=== PATIENT | female | born 1955 | race Caucasian/White ===

== ENCOUNTER 2020-02-21 11:49 | Day surgery (SDC) | payer MEDICARE ==
--- NOTE | 2020-02-14 09:59 | HP ---
DATE OF SURGERY: 02/21/2020 HISTORY OF PRESENT ILLNESS: The patient presents to the office with a bothersome right elbow mass. It has been there for a while, a few months. It puts pressure on the area when she is trying to use it. She also has a left upper arm subcutaneous mass. She reports that this is from an old dog bite. There is some bulging and scarring to the area. PAST MEDICAL HISTORY: Anxiety. Hypertension. Leaky heart valve. PAST SURGICAL HISTORY: Skin cancer removed from the scalp. ALLERGIES: NKDA. MEDICATIONS: Metoprolol. Lexapro. Hydralazine. FAMILY HISTORY: Heart disease, lung cancer, cirrhosis. SOCIAL HISTORY: Former smoker, occasional alcohol. REVIEW OF SYSTEMS: CONSTITUTIONAL: No fever or chills. CHEST: Denies shortness of breath. CVS: Denies chest pain. ABDOMEN: Denies abdominal pain, nausea, vomiting, diarrhea, constipation or rectal bleeding. INTEGUMENTARY: Reports subcutaneous mass of the left elbow and left upper arm. PHYSICAL EXAMINATION: GENERAL: No acute distress. CHEST: Nonlabored. No shortness of breath. CVS: Regular rate and rhythm. ABDOMEN: Soft, nontender to palpation. EXTREMITIES: No edema. INTEGUMENTARY: Left upper arm subcutaneous mass approximately 2.5 x 2.5 cm, right elbow subcutaneous mass 1 x 1 cm. ASSESSMENT: Subcutaneous mass of the left upper arm and right elbow. PLAN: Excision of right elbow subcutaneous mass and left upper arm subcutaneous mass with Dr. Joel Valle. As dictated by Abby Capone NP.
[~2020-02-21 11:49] MED LIST: Lactated Ringers 1,000 ML IV ONE; Sensorcaine 0.25% 10 ML ONE
[2020-02-21] MEDS ORDERED: SUBLIMAZE 100 MCG/2 ML ONE ×2 (12:56→16:51)
[2020-02-21] MEDS ORDERED: DIPRIVAN 200 MG/20 ML IV ONE (12:57)
[2020-02-21] MEDS ORDERED: Versed 2 MG/2 ML Injection ONE ×2 (12:57→14:09)
[2020-02-21] MEDS ORDERED: Xylocaine-Mpf 2% 5 Ml Vial ONE (12:58)
[2020-02-21] MEDS ORDERED: KEFZOL 1 GM ONE (13:17)
[2020-02-21] MEDS ORDERED: Proair Hfa MDI IH ONE (13:25)
[2020-02-21] MEDS ORDERED: Lactated Ringers 1,000 ML IV SCH (14:00)
[2020-02-21] MEDS ORDERED: Versed 2 MG/2 ML Injection IV ONE (14:13)
[2020-02-21] MEDS ORDERED: Sensorcaine 0.25% 10 ML ONE (16:52)
[2020-02-21] MEDS ORDERED: APRESOLINE 20 MG/ML INJ IV ONE (17:51)
[2020-02-21] MEDS ORDERED: APRESOLINE 20 MG/ML INJ ONE (17:52)
[2020-02-21 18:06] VITALS: BP 158/74; PULSE 72; O2SAT 97
--- NOTE | 2020-02-22 08:08 | OP ---
SURGERY DATE/TIME: 02/21/2020 8264 PREOPERATIVE DIAGNOSES: 1) A 4 cm lipoma left arm, symptomatic and enlarging. 2) A 2 cm lipoma right arm, symptomatic and enlarging. POSTOPERATIVE DIAGNOSES: 1) A 4 cm lipoma left arm, symptomatic and enlarging. 2) A 2 cm lipoma right arm, symptomatic and enlarging. PROCEDURE: Excision and closure x2. SURGEON: Joel Valle M.D. R D MANAGER: Dany White, [facility] Resident II. ANESTHESIA: General. COMPLICATIONS: None. CONDITION: Stable. INDICATION: A patient requiring excision of two subcutaneous masses. DESCRIPTION OF PROCEDURE: Taken to surgery. MAC/General sedation. Routine prep and drape. The largest on the left arm 4 cm transverse incision removed in its entirety. Hemostasis obtained with electrocautery. Closed with 3-0 Vicryl, 4-0 Vicryl and Steri-Strips. The smaller one on the right elbow area transverse incision of 2 cm bilobed lipoma removed in toto. Hemostasis satisfactory. Closed with 3-0 Vicryl, 4-0 Vicryl and Steri-Strips. The patient tolerated the procedure satisfactorily.
== END 2020-02-21 18:15 | disposition home or self-care (01) ==
LOC: SDC 11:49
PROVIDERS: ATTEND Surgery
DX: D17.22 Benign lipomatous neoplasm of skin and subcutaneous tissue of left arm (principal); D17.21 Benign lipomatous neoplasm of skin and subcutaneous tissue of right arm
CPT/HCPCS: 88304; J0360; J0690; J2250; J2704; J3010; A9270-GY

== ENCOUNTER 2020-07-10 06:15 | Day surgery (SDC) | payer MEDICARE ==
--- NOTE | 2020-07-04 13:13 | HP ---
DATE OF SURGERY: 07/10/2020 HISTORY OF PRESENT ILLNESS: The patient presented to the office with complaints of diarrhea and occasional abdominal pain. She has had to go multiple times a day. The pain is located in the right upper quadrant. She did have a HIDA scan done that was normal. Ejection fraction was high at 85%, this could still be biliary dyskinesia and she may need her gallbladder taken out. She is also due for a colonoscopy. It is unclear if this is her first colonoscopy. PAST MEDICAL HISTORY: Hypertension. Depression. PAST SURGICAL HISTORY: Subcutaneous mass removed from the right and left arm. ALLERGIES: NKDA. MEDICATIONS: Metoprolol, Lexapro, hydralazine. FAMILY HISTORY: Heart disease, cancer. SOCIAL HISTORY: None. REVIEW OF SYSTEMS: CONSTITUTIONAL: Denies fever or chills. CHEST: Denies shortness of breath. CVS: Denies chest pain. ABDOMEN: Reports right upper quadrant pain. Denies nausea, vomiting. Reports occasional diarrhea. Denies constipation or rectal bleeding. INTEGUMENTARY: Negative. PHYSICAL EXAMINATION: GENERAL: No acute distress. CHEST: Nonlabored. No shortness of breath. CVS: Regular rate and rhythm. ABDOMEN: Soft, tender to palpation right upper quadrant. EXTREMITIES: No edema. NEUROLOGIC: Alert. PSYCHIATRIC: Appropriate. IMPRESSION: Screening, diarrhea and abdominal pain. PLAN: Colonoscopy with stool study with Dr. Joel Valle. As dictated by Abby Capone NP.
[2020-07-10] MEDS ORDERED: Lactated Ringers 1,000 ML IV SCH (06:30)
[2020-07-10] MEDS ORDERED: Zofran 4 MG/2 ML VIAL ONE (06:48)
[2020-07-10] MEDS ORDERED: Versed 2 MG/2 ML Injection IV PRN (06:50)
[2020-07-10] MEDS ORDERED: Zofran 4 MG/2 ML VIAL IV ONE (06:51)
[2020-07-10] MEDS ORDERED: DIPRIVAN 200 MG/20 ML IV ONE (08:12)
[2020-07-10 09:18] VITALS: PULSE 72; O2SAT 98
[2020-07-10 09:31] VITALS: BP 130/62
--- NOTE | 2020-07-10 11:12 | OP ---
SURGERY DATE/TIME: 07/10/2020 0813 PREOPERATIVE DIAGNOSIS: Screening. POSTOPERATIVE DIAGNOSIS: A 2 cm hepatic flexure polyp. PROCEDURES: 1) Colonoscopy complete to cecum. 2) Hot biopsy x1 of this polyp, hot snare polypectomy x1. 3) Stool sample for Clostridium difficile, ova and parasite, stool pathogen. SURGEON: Joel Valle M.D. ANESTHESIA: MAC. COMPLICATIONS: None. CONDITION: Stable. INDICATION: A patient requiring evaluation. DESCRIPTION OF PROCEDURE: Taken to surgery. Left lateral decubitus position. MAC sedation provided. Scope introduced. Anal digital examination satisfactory. Scope advanced to the cecum. Base of the cecum, ileocecal valve normal. Ascending hepatic 2 cm long polyp was biopsied with hot biopsy forceps and it was then taken with snare to extinction. Cream Beater sample submitted. Stool trap was on and was taken off. Cream Beater samples for Clostridium difficile, ova and parasite, and stool pathogens. The rest of the exam was normal. The patient tolerated the procedure satisfactorily. She will return to the office for pathology report. We will schedule her for three year follow up polypectomy.
[2020-07-10 11:26] LABS: 027 TOX PROD PRESUMPTIVE NEGATIVE (NEGATIVE); TOXIGENIC C. DIFF ORG NEGATIVE (NEGATIVE)
== END 2020-07-10 09:59 | disposition home or self-care (01) ==
LOC: SDC 06:15
PROVIDERS: ATTEND Surgery
DX: Z12.11 Encounter for screening for malignant neoplasm of colon (principal); R19.7 Diarrhea, unspecified; R10.11 Right upper quadrant pain; I10 Essential (primary) hypertension; Z79.899 Other long term (current) drug therapy; D12.3 Benign neoplasm of transverse colon
CPT/HCPCS: 87045; 87046; 87328; 87329; 87493; J2250; J2405; J2704

== ENCOUNTER 2020-09-25 09:01 | Day surgery (SDC) | payer MEDICARE ==
--- NOTE | 2020-09-18 11:03 | HP ---
DATE OF SURGERY: 09/25/2020 HISTORY OF PRESENT ILLNESS: The patient has been followed for persistent right upper quadrant pain with complaints of diarrhea and nausea immediately after eating. Her HIDA scan showed ejection fraction of 85%. They tried conservative treatment and she has had no luck. They recently did endoscopy she had a colon polyp and her stool studies were fine. She also had a trial of Imodium that has not helped. She had CT scan recently showing an 8 x 10 x 8 cm right ovarian mass. We have ordered CEA-125 on her. Laparoscopic cholecystectomy was discussed with her in detail. She was aware that this possibly may not resolve all of her symptoms. PAST MEDICAL HISTORY: Hypertension, depression. PAST SURGICAL HISTORY: She had a lipoma removed from her arm in the past. ALLERGIES: NKDA. SHELLFISH. MEDICATIONS: Spironolactone, famotidine, metoprolol, Lexapro. FAMILY HISTORY: Heart disease. Lung cancer. SOCIAL HISTORY: Occasional alcohol. REVIEW OF SYSTEMS: CONSTITUTIONAL: Denies fever or chills. CHEST: Denies shortness of breath. CVS: Denies chest pain. ABDOMEN: Reports right upper quadrant pain, occasional nausea, vomiting and diarrhea. Denies constipation or rectal bleeding. INTEGUMENTARY: Negative. PHYSICAL EXAMINATION: GENERAL: No acute distress. HEENT: No jaundice. Oral mucosa moist. NECK: No JVD. CHEST: Nonlabored. No shortness of breath. CVS: Regular rate and rhythm. ABDOMEN: Soft, nontender to palpation. EXTREMITIES: No edema. NEUROLOGIC: Alert. PSYCHIATRIC: Appropriate. IMPRESSION: Biliary dyskinesia and right ovarian cystic mass. PLAN: Laparoscopic cholecystectomy possible open and possible right oophorectomy with Dr. Joel Valle. As dictated by Abby Capone NP.
[2020-09-25] MEDS ORDERED: Lactated Ringers 1,000 ML IV SCH (09:30)
[2020-09-25] MEDS ORDERED: Versed 2 MG/2 ML Injection IV PRN (09:45)
[2020-09-25 09:53] LABS: Hematocrit 39.2 % (35-47); Hemoglobin 12.1 gm/dl (12.0-16.0); Mean Cell Volume 94.5 fl (78-100); Mean Corpuscular Hemoglobin 29.2 pg (26-32); Mean Corpuscular Hgb Concent. 30.9 g/dl (32-36); Mean Platelet Volume 9.3 fl (7.5-11.0); Platelet Count 312 K/mm3 (150-450); Red Blood Count 4.15 M/mm3 (4.1-5.4); Red Cell Distribution Width 14.5 % (11.5-14.0); White Blood Count 9.1 K/mm3 (4.0-10.5)
[2020-09-25] MEDS ORDERED: MEFOXIN 2 GM PREMIX** 2 GM/50 ML ML IV SCH (10:00)
[2020-09-25 10:05] LABS: ALBUMIN 4.3 g/dL (3.5-5.0); ALKALINE PHOSPHATASE 80 U/L (38-126); ANION GAP 12.2 MEQ/L (5-15); BLOOD UREA NITROGEN 16 mg/dL (7-17); CHLORIDE 104 mmol/L (98-107); Calcium 9.2 mg/dL (8.4-10.2); Carbon Dioxide 26 mmol/L (22-30); EST GLOMERULAR FILTRATION RATE > 60.0 ML/MIN; Glucose 112 mg/dL (74-106); Potassium 4.1 mmol/L (3.5-5.1); SGOT/AST 25 U/L (14-36); SGPT/ALT 26 U/L (0-35); SODIUM 138 mmol/L (137-145); Total Protein 7.5 g/dL (6.3-8.2)
[2020-09-25] MEDS ORDERED: Transderm Scop 1.5MG Patch TOP PRN (10:10)
[2020-09-25] MEDS ORDERED: Pepcid 20 MG VIAL IV ONE (10:10)
[2020-09-25] MEDS ORDERED: Zemuron 100 MG/10 ML ONE (10:30)
[2020-09-25] MEDS ORDERED: TORAdol 30 mg Injection ONE (10:30)
[2020-09-25] MEDS ORDERED: Xylocaine-Mpf 2% 5 Ml Vial ONE (10:30)
[2020-09-25] MEDS ORDERED: Decadron 4 MG INJ ONE (10:30)
[2020-09-25] MEDS ORDERED: BRIDION 200MG/2ML IV ONE (10:30)
[2020-09-25] MEDS ORDERED: DIPRIVAN 200 MG/20 ML IV ONE (10:30)
[2020-09-25] MEDS ORDERED: SUBLIMAZE 100 MCG/2 ML ONE ×2 (10:30→14:01)
[2020-09-25] MEDS ORDERED: Zofran 4 MG/2 ML VIAL ONE (10:30)
[2020-09-25] MEDS ORDERED: ROBINUL ONE (13:17)
[2020-09-25] MEDS ORDERED: Lactated Ringers 1,000 ML IV ONE (13:40)
[2020-09-25] MEDS ORDERED: MORPHINE SULFATE 10 MG/ML ONE (14:00)
[2020-09-25] MEDS ORDERED: Hydromorphone 1 mg/ml Injection ONE (14:40)
[2020-09-25] MEDS ORDERED: Compazine 10 MG/2 ML ONE (14:52)
[2020-09-25] MEDS ORDERED: NORCO 5/325 MG PO PRN (15:34)
[2020-09-25 15:45] VITALS: PULSE 62
[2020-09-25 16:22] VITALS: O2SAT 91
[2020-09-25 16:50] VITALS: BP 128/62
--- NOTE | 2020-09-26 08:40 | OP ---
SURGERY DATE/TIME: 09/25/2020 1133 PREOPERATIVE DIAGNOSES: 1) Symptomatic cholelithiasis. 2) Right ovarian mass. POSTOPERATIVE DIAGNOSIS: 1) Symptomatic cholelithiasis. 2) The patient has a large dermoid of the right ovary. PROCEDURES: 1) Laparoscopic cholecystectomy. 2) Laparoscopic right salpingo-oophorectomy through different laparoscopic incision. 3) Laparoscopic appendectomy which is not incidental that there seemed to be shortening, firmness and some slight mucous bubbles on the appendix itself requiring resection. SURGEON: Dr. Joel Valle. ANESTHESIA: General endotracheal tube. COMPLICATIONS: None. ESTIMATED BLOOD LOSS: 200. DRAINS: None. FINDINGS: 1) The patient had gallbladder dyskinesia. She clearly had cholesterolosis with small stone material today. 2) The patient had a right ovarian mass which turned out to be a large dermoid today. 3) The patient also had a shortening, thickening of the appendix with mucous spots exteriorly requiring taking of the appendix. INDICATIONS: The patient has the above conditions. DESCRIPTION OF PROCEDURE AND FINDINGS: Taken to surgery. General anesthetic, routine prep and drape. Veress needle inserted. Opening pressure of 1, insufflating pressure 14. Four - 5's. Good visualization. The gallbladder was fairly intrahepatic. With care and patience was given. Cystic duct defined. Cystic artery defined. Both structures triply clipped and transected. Clips noted across and well approximated. Gallbladder rolled out of gallbladder fossa. The gallbladder delivered through upper abdominal port. Hole closure device used here and closed off. Attention to the pelvis, additional three ports were placed in the pelvis. There was a mass on the right ovary. The infundibulopelvic ligament area was taken. The round ligament was taken. The tube was then taken on the uterus. The specimen was then freed. The colon was satisfactory. The uterus cornua was satisfactory. A limited transverse extraction incision was made in the lower abdomen and the specimen removed. The field was dry. Anterior abdominal wall closed with 0 looped PDS. Subcutaneous tissue irrigated. Skin closed with claudia. Sterile dressing applied. The patient tolerated the procedure satisfactorily. Additionally, the appendix had been taken laparoscopically with stapling device and the cecal edge was able to be inspected openly and was satisfactory.
== END 2020-09-25 16:50 | disposition home or self-care (01) ==
LOC: SDC 09:01
PROVIDERS: ATTEND Surgery
DX: K80.20 Calculus of gallbladder without cholecystitis without obstruction (principal); N83.9 Noninflammatory disorder of ovary, fallopian tube and broad ligament, unspecified; K38.9 Disease of appendix, unspecified; K82.8 Other specified diseases of gallbladder; Z79.899 Other long term (current) drug therapy
CPT/HCPCS: 36415; 80053; 82947; 85027; 94002; J0694; J1100; J1170; J1885; J2250; J2270; J2405; J2704; J3010; A9270-GY

== ENCOUNTER 2021-09-29 15:55 | Emergency (ER) | payer MEDICARE ==
--- NOTE | 2021-09-29 16:35 | ERPHSYRPT ---
- History of Present Illness Source: patient Exam Limitations: no limitations Patient Subjective Stated Complaint: Pt states "I have not felt well for the past 9 days so today I went to get tested and I was positive. My doctor wanted me to come and get my lungs checked out." Triage Nursing Assessment: Pt presented alert and oriented X 3, skin pwd Pt ambulates with an upright steady gait, able to speak in clear full sentences pt in no apparent respiratory distress. Pt resting comfortably on the bed. Physician History: 66 yo wf tested+ for CV19 today w 8 day h/o cough/coryza/N/D/myalgias/arthralias/VEGA/resolved fever/L sternal chest pain w r adiation to L scapula which is worse w deep inspiration. Timing/Duration: other (8 days) Cough Quality/Degree: dry cough Possible Cause: no prior episodes Modifying Factors: Improves With: coughing, deep breath, exertion Associated Symptoms: fever, chills, chest pain/soreness, cough, headache, muscle aches, nasal congestion, nasal drainage, No dizziness, No earache, No facial pain, No lightheadedness, No shortness of breath, No sinus infection, No sore throat, No wheezing Allergies/Adverse Reactions: shrimp Allergy (Intermediate, Verified 09/25/20 09:15) Swelling of Face Home Medications: Escitalopram Oxalate [Lexapro] 20 mg PO DAILY 02/13/20 [History] Metoprolol Succinate 50 mg [Toprol Xl 50 MG] 50 mg PO BID 02/13/20 [History] Famotidine 20 mg [Pepcid 20 MG] 20 mg PO DAILY 09/03/20 [History] Spironolactone 25 mg PO DAILY 09/03/20 [History] Colestipol HCl [Colestid] 1 gm PO DAILY 09/29/21 [History] Hx Tetanus, Diphtheria Vaccination/Date Given: No Hx Influenza Vaccination/Date Given: Yes Hx Pneumococcal Vaccination/Date Given: No Immunizations Up to Date: Yes Travel Risk - International Travel Have you traveled outside of the country in past 3 weeks: No - Coronavirus Screening Are you exhibiting any of the following symptoms?: Yes Symptoms: Cough: New Onset, Shortness of Breath Close contact with a COVID-19 positive Pt in past 14-21 Days: No - Vaccine Status Have you recieved a Covid-19 vaccination: No - Review of Systems Constitutional: No Symptoms, Fever, Chills, Fatigue, Lethargy, Malaise Eyes: No Symptoms Ears, Nose, & Throat: No Symptoms Respiratory: No Symptoms, Cough, Dyspnea, Dyspnea on Exertion (PARK) Cardiac: No Symptoms, Chest Pain Abdominal/Gastrointestinal: No Symptoms, Nausea, Diarrhea, No Vomiting Genitourinary Symptoms: No Symptoms Musculoskeletal: No Symptoms Skin: No Symptoms Neurological: No Symptoms Psychological: No Symptoms Endocrine: No Symptoms Hematologic/Lymphatic: No Symptoms Immunological/Allergic: No Symptoms - Past Medical History Pertinent Past Medical History: Yes Neurological History: No Pertinent History ENT History: No Pertinent History Cardiac History: Hypertension, Other Respiratory History: Sleep Apnea, Other Endocrine Medical History: No Pertinent History Musculoskeletal History: No Pertinent History GI Medical History: GERD History: No Pertinent History Psycho-Social History: Anxiety, Other Female Reproductive Disorders: No Pertinent History Other Medical History: hx sob, hx smoking quit 2004, cancer to scalp, panic attacks - Past Surgical History Past Surgical History: No Neuro Surgical History: No Pertinent History Cardiac: No Pertinent History Respiratory: No Pertinent History Gastrointestinal: No Pertinent History Genitourinary: No Pertinent History Musculoskeletal: No Pertinent History Female Surgical History: No Pertinent History Other Surgical History: skin cancer removed from scalp done under local. - Social History Smoking Status: Former smoker Exposure to second hand smoke: No Drug Use: none Patient Lives Alone: No Significant Family History: no pertinent family hx - Nursing Vital Signs Nursing Vital Signs: Initial Vital Signs Temperature 98.2 F 09/29/21 16:03 Pulse Rate 64 09/29/21 16:03 Respiratory Rate 22 09/29/21 16:03 Blood Pressure 181/78 09/29/21 16:03 O2 Sat by Pulse Oximetry 98 09/29/21 16:03 Pain Scale Pain Intensity 4 Hypertensive - Physical Exam General Appearance: no apparent distress Eye Exam: PERRL/EOMI, eyes nml inspection Ears, Nose, Throat Exam: normal ENT inspection, TMs normal, pharynx normal, moist mucous membranes Neck Exam: normal inspection, non-tender, supple, full range of motion, No meningismus, No mass, No Brudzinski, No Kernig's, No carotid bruit Respiratory Exam: normal breath sounds, lungs clear, airway intact, No respiratory distress Cardiovascular Exam: regular rate/rhythm, normal heart sounds, normal peripheral pulses, No murmur Gastrointestinal/Abdomen Exam: soft, normal bowel sounds, No tenderness Back Exam: normal inspection, normal range of motion, vertebral tenderness, No CVA tenderness Extremity Exam: normal inspection, normal range of motion Neurologic Exam: alert, oriented x 3, cooperative, trap operator II-XII nml as tested, normal mood/affect, nml cerebellar function, nml station & gait, sensation nml, No motor deficits, No sensory deficit Skin Exam: normal color, warm, dry Lymphatic Exam: No adenopathy SpO2 Interpretation: normal SpO2: 98 O2 Delivery: Room Air - Course Nursing assessment & vital signs reviewed: Yes EKG Interpreted by Me: RATE (Mild sinus tawanna/R58/Mildly prolonged QT/Inverted Twave V3/1mm ST depression V3-V4) - Radiology Exams Chest X-ray Interpretation: Discussed w/ radiologist (Minimal R base atelectasis vs infiltrate) - CT Exams Chest CT Interpretation: Discussed w/radiologist (CT chest-No PE/Covid) Ordered Tests: Active Orders 24 hr Category Date Time Status EKG-ER Only STAT Care 09/29/21 16:27 Completed CHEST 1 VIEW (PORTABLE) Stat Exams 09/29/21 16:28 Completed CHEST WITH CONTRAST [CT] Stat Exams 09/29/21 18:57 Taken CBC W DIFF Stat Lab 09/29/21 16:15 Completed CMP Stat Lab 09/29/21 16:15 Completed D-DIMER QUANTITATIVE Stat Lab 09/29/21 16:15 Completed PROTIME WITH INR Stat Lab 09/29/21 16:15 Completed PTT Stat Lab 09/29/21 16:15 Completed TROPONIN Q3H Lab 09/29/21 16:15 Completed TROPONIN Q3H Lab 09/29/21 19:34 Completed Medication Summary Discontinued Medications Generic Name Dose Route Start Last Admin Trade Name Freq PRN Reason Stop Dose Admin Dexamethasone Sodium Phosphate 10 mg 09/29/21 17:48 09/29/21 17:57 Dexamethasone Sod Phosphate 10 Mg/Ml IV 09/29/21 17:49 10 mg STAT ONE Administration Dexamethasone Sodium Phosphate Confirm 09/29/21 17:55 Dexamethasone Sod Phosphate 10 Mg/Ml Administered 09/29/21 17:56 Dose 10 mg .ROUTE .STK-MED ONE Diphenhydramine HCl 25 mg 09/29/21 17:49 02/08/22 17:56 Diphenhydramine Hcl 50 Mg/Ml Vial IV 09/29/21 17:50 25 mg STAT ONE Administration Diphenhydramine HCl Confirm 09/29/21 17:55 Diphenhydramine Hcl 50 Mg/Ml Vial Administered 09/29/21 17:56 Dose 50 mg .ROUTE .STK-MED ONE Lab/Rad Data: Laboratory Result Diagrams 09/29/21 16:15 09/29/21 16:15 Laboratory Results 09/29/21 09/29/21 09/29/21 Range/Units 19:34 16:15 16:15 WBC (4.0-10.5) K/mm3 RBC (4.1-5.4) M/mm3 Hgb (12.0-16.0) gm/dl Hct (35-47) % MCV (78-100) fl MCH (26-32) pg MCHC (32-36) g/dl RDW (11.5-14.0) % Plt Count (150-450) K/mm3 MPV (7.5-11.0) fl Gran % (36.0-66.0) % Eos # (Auto) (0-0.5) Absolute Lymphs (auto) (1.0-4.6) Absolute Monos (auto) (0.0-1.3) Lymphocytes % (24.0-44.0) % Monocytes % (0.0-12.0) % Eosinophils % (0.00-5.0) % Basophils % (0.0-0.4) % Absolute Granulocytes (1.4-6.9) Basophils # (0-0.4) PT 11.2 (9.4-12.5) SECONDS INR 0.95 (0.8-3.0) APTT 24.4 L (25.1-36.5) SECONDS D-Dimer 587 H* (215-500) ng/mL Sodium (137-145) mmol/L Potassium (3.5-5.1) mmol/L Chloride (98-107) mmol/L Carbon Dioxide (22-30) mmol/L Anion Gap (5-15) MEQ/L BUN (7-17) mg/dL Creatinine (0.52-1.04) mg/dL Estimated GFR ML/MIN Glucose (74-106) mg/dL Calcium (8.4-10.2) mg/dL Total Bilirubin (0.2-1.3) mg/dL AST (14-36) U/L ALT (0-35) U/L Alkaline Phosphatase (38-126) U/L Troponin I < 0.012 < 0.012 (0.000-0.034) ng/mL Serum Total Protein (6.3-8.2) g/dL Albumin (3.5-5.0) g/dL 09/29/21 09/29/21 Range/Units 16:15 16:15 WBC 8.0 (4.0-10.5) K/mm3 RBC 4.14 (4.1-5.4) M/mm3 Hgb 12.8 (12.0-16.0) gm/dl Hct 39.8 (35-47) % MCV 96.1 (78-100) fl MCH 30.9 (26-32) pg MCHC 32.2 (32-36) g/dl RDW 14.3 H (11.5-14.0) % Plt Count 292 (150-450) K/mm3 MPV 9.6 (7.5-11.0) fl Gran % 61.5 (36.0-66.0) % Eos # (Auto) 0.14 (0-0.5) Absolute Lymphs (auto) 2.27 (1.0-4.6) Absolute Monos (auto) 0.64 (0.0-1.3) Lymphocytes % 28.4 (24.0-44.0) % Monocytes % 8.0 (0.0-12.0) % Eosinophils % 1.8 (0.00-5.0) % Basophils % 0.3 (0.0-0.4) % Absolute Granulocytes 4.92 (1.4-6.9) Basophils # 0.02 (0-0.4) PT (9.4-12.5) SECONDS INR (0.8-3.0) APTT (25.1-36.5) SECONDS D-Dimer (215-500) ng/mL Sodium 140 (137-145) mmol/L Potassium 4.6 (3.5-5.1) mmol/L Chloride 104 (98-107) mmol/L Carbon Dioxide 26 (22-30) mmol/L Anion Gap 15.4 H (5-15) MEQ/L BUN 14 (7-17) mg/dL Creatinine 0.92 (0.52-1.04) mg/dL Estimated GFR > 60.0 ML/MIN Glucose 105 (74-106) mg/dL Calcium 8.9 (8.4-10.2) mg/dL Total Bilirubin 0.70 (0.2-1.3) mg/dL AST 28 (14-36) U/L ALT 39 H (0-35) U/L Alkaline Phosphatase 88 (38-126) U/L Troponin I (0.000-0.034) ng/mL Serum Total Protein 7.6 (6.3-8.2) g/dL Albumin 4.6 (3.5-5.0) g/dL - Progress Progress: improved Progress Note: 09/29/21 19:56 10mg IV Decadron/25mg IV Benadryl before CT Counseled pt/family regarding: lab results, diagnosis, need for follow-up, rad results - Departure Departure Disposition: Home Clinical Impression: COVID Condition: Good Critical Care Time: No Referrals: YESENIA CONNOR, [facility] [Primary Care Provider] - Follow up/PCP as directed Instructions: Coronavirus Disease 2019 (COVID-19) (DC) Additional Instructions: Get a pulse oximeter and monitor oxygen saturation 2-3 times a day Return to ER for persistent oxygen saturation less than 91% Vitamin D 5000units a day Follow up with your family
--- NOTE | 2021-09-29 16:59 | XRAY ---
Indication: Cough and short of breath. Positive Covid 19. Comparison: February 12, 2020. Portable apical lordotic chest demonstrates new minimal right base infiltrate versus atelectasis. Remaining heart and lungs normal. Bony thorax intact again with osteopenia and degenerative changes.
[2021-09-29 17:08] LABS: Absolute Neutrophil Ct (ANC) 4.92 (1.4-6.9); Basophil (Absolute #) 0.02 (0-0.4); Eosinophil % 1.8 % (0.00-5.0); Eosinophil (Absolute #) 0.14 (0-0.5); Hematocrit 39.8 % (35-47); Hemoglobin 12.8 gm/dl (12.0-16.0); Lymphocyte (Absolute #) 2.27 (1.0-4.6); Lymphocytes % 28.4 % (24.0-44.0); Mean Cell Volume 96.1 fl (78-100); Mean Corpuscular Hemoglobin 30.9 pg (26-32); Mean Corpuscular Hgb Concent. 32.2 g/dl (32-36); Mean Platelet Volume 9.6 fl (7.5-11.0); Monocyte (Absolute #) 0.64 (0.0-1.3); Neutrophil % 61.5 % (36.0-66.0); Platelet Count 292 K/mm3 (150-450); Red Blood Count 4.14 M/mm3 (4.1-5.4); Red Cell Distribution Width 14.3 % (11.5-14.0)
[2021-09-29 17:10] LABS: INR 0.95 (0.8-3.0); PROTIME 11.2 SECONDS (9.4-12.5)
[2021-09-29 17:13] LABS: PTT 24.4 SECONDS (25.1-36.5)
[2021-09-29 17:19] LABS: ALBUMIN 4.6 g/dL (3.5-5.0); ALKALINE PHOSPHATASE 88 U/L (38-126); ANION GAP 15.4 MEQ/L (5-15); BLOOD UREA NITROGEN 14 mg/dL (7-17); CHLORIDE 104 mmol/L (98-107); Calcium 8.9 mg/dL (8.4-10.2); Carbon Dioxide 26 mmol/L (22-30); Creatinine 1 0.92 mg/dL (0.52-1.04); EST GLOMERULAR FILTRATION RATE > 60.0 ML/MIN; Glucose 105 mg/dL (74-106); Potassium 4.6 mmol/L (3.5-5.1); SGOT/AST 28 U/L (14-36); SGPT/ALT 39 U/L (0-35); SODIUM 140 mmol/L (137-145); Total Protein 7.6 g/dL (6.3-8.2)
[2021-09-29] MEDS ORDERED: DECADRON 10MG INJ. IV ONE (17:48)
[2021-09-29] MEDS ORDERED: BENADRYL 50 MG/ML IV ONE (17:49)
[2021-09-29] MEDS ORDERED: BENADRYL 50 MG/ML ONE (17:55)
[2021-09-29] MEDS ORDERED: DECADRON 10MG INJ. ONE (17:55)
[2021-09-29 20:13] VITALS: BP 184/74; PULSE 76
[2021-09-29 22:32] VITALS: O2SAT 98
--- NOTE | 2021-09-30 08:47 | XRAY ---
Indication: Short of breath. Chest/back pain. Positive Covid 19. Elevated d-dimer. Multiple contiguous axial images obtained through the chest using 80 cc Isovue 370 contrast and PE protocol. Comparison: None There is good opacification of the pulmonary arteries to include the lobar and segmental branches. No pulmonary embolus. Heart not enlarged. Aorta is minimally arteriosclerotic without aneurysm/dissection. No pathologic mediastinal/hilar lymphadenopathy. Lungs demonstrates minimal bibasilar dependent atelectasis. Mid to lower lung madrigal demonstrates a few subtle patchy peripheral groundglass opacities bilaterally. No consolidation or effusion. Bony thorax intact with minimal degenerative changes throughout the spine. Limited upper abdomen demonstrates previous cholecystectomy. Impression: 1. Negative pulmonary embolus. 2. Minimal bilateral patchy peripheral groundglass opacities. Rule out Covid 19 pneumonia.
== END 2021-09-29 20:14 | disposition home or self-care (01) ==
LOC: ED 15:55
DX: U07.1 COVID-19 (principal); R05.9 Cough, unspecified; R09.81 Nasal congestion; R11.0 Nausea; M79.10 Myalgia, unspecified site; R51.9 Headache, unspecified; R07.9 Chest pain, unspecified; I10 Essential (primary) hypertension; K21.9 Gastro-esophageal reflux disease without esophagitis
CPT/HCPCS: 36000; 36415; 71045; 71260; 80053; 84484; 85025; 85379; 85610; 85730; 93005; 96374; 96375; 99284; J1100; J1200

== ENCOUNTER 2023-01-14 20:04 | Emergency (ER) | payer MEDICARE ==
--- NOTE | 2023-01-14 20:37 | ERPHSYRPT ---
- History of Present Illness Source: patient, other (SO) Patient Subjective Stated Complaint: pt states she has been sick since 12/30 with cough, body aches, headache. states body aches and headache are better now but she still has a persistent cough. Triage Nursing Assessment: pt alert and oriented answers questions approp. pt ambualtory with steady gait noted. respirations nonlabored with lungs cta bilat. occasional hacking cough noted. skin warm and dry. Physician History: 67 yo WF w non-productive cough since 12/30/22. Pt has mild coryza/mild diarrhea/mild nausea but denies fever/dyspnea/chest pain/melena/hematochezia. She does not smoke and has not seen her PCP about the cough. Timing/Duration: other (Since 12/30/22) Cough Quality/Degree: dry cough Possible Cause: occasional episodes Modifying Factors: Improves With: coughing Associated Symptoms: denies symptoms, nasal congestion Allergies/Adverse Reactions: shrimp Allergy (Intermediate, Verified 01/14/23 20:30) Swelling of Face Home Medications: Escitalopram Oxalate [Lexapro] 20 mg PO DAILY 02/13/20 [History] Metoprolol Succinate 50 mg [Toprol Xl 50 MG] 50 mg PO BID 02/13/20 [History] Famotidine 20 mg [Pepcid 20 MG] 20 mg PO BID 09/03/20 [History] Spironolactone 25 mg PO DAILY 09/03/20 [History] Colestipol HCl [Colestid] 2 gm PO BID 09/29/21 [History] Hx Tetanus, Diphtheria Vaccination/Date Given: No Hx Influenza Vaccination/Date Given: No Hx Pneumococcal Vaccination/Date Given: No Immunizations Up to Date: No Travel Risk - International Travel Have you traveled outside of the country in past 3 weeks: No - Coronavirus Screening Are you exhibiting any of the following symptoms?: Yes Symptoms: Shortness of Breath, Headaches/Body Aches/Fatigue Close contact with a COVID-19 positive Pt in past 14-21 Days: No - Vaccine Status Have you recieved a Covid-19 vaccination: No - Review of Systems Constitutional: No Symptoms, Malaise Eyes: No Symptoms Ears, Nose, & Throat: No Symptoms Respiratory: No Symptoms, Cough Cardiac: No Symptoms Abdominal/Gastrointestinal: No Symptoms Genitourinary Symptoms: No Symptoms Musculoskeletal: No Symptoms Skin: No Symptoms Neurological: No Symptoms Psychological: No Symptoms Endocrine: No Symptoms Hematologic/Lymphatic: No Symptoms Immunological/Allergic: No Symptoms - Past Medical History Pertinent Past Medical History: Yes Neurological History: No Pertinent History ENT History: No Pertinent History Cardiac History: Hypertension, Other Respiratory History: Sleep Apnea, Other Endocrine Medical History: No Pertinent History Musculoskeletal History: No Pertinent History GI Medical History: GERD History: No Pertinent History Psycho-Social History: Anxiety, Other Female Reproductive Disorders: No Pertinent History Other Medical History: hx sob, hx smoking quit 2004, 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 cortisone shot to knee on 12/27. cardiomegaly - Past Surgical History Past Surgical History: Yes Neuro Surgical History: No Pertinent History Cardiac: No Pertinent History Respiratory: No Pertinent History Gastrointestinal: Appendectomy, Cholecystectomy Genitourinary: No Pertinent History Musculoskeletal: No Pertinent History Female Surgical History: Other Other Surgical History: skin cancer removed from scalp done under local. rt ovary and mass removed, lipomas removed from arms. - Social History Smoking Status: Former smoker Exposure to second hand smoke: Yes Drug Use: none Patient Lives Alone: No Significant Family History: no pertinent family hx - Nursing Vital Signs Nursing Vital Signs: Initial Vital Signs Temperature 97.7 F 01/14/23 20:12 Pulse Rate 80 01/14/23 20:12 Respiratory Rate 18 01/14/23 20:12 Blood Pressure 174/81 01/14/23 20:12 O2 Sat by Pulse Oximetry 95 01/14/23 20:12 Pain Scale Pain Intensity 2 Hypertensive - Physical Exam General Appearance: no apparent distress Eye Exam: PERRL/EOMI, post op pupil defect (L) Ears, Nose, Throat Exam: normal ENT inspection, TMs normal, pharynx normal, moist mucous membranes Neck Exam: normal inspection, non-tender, supple, full range of motion, No meningismus, No mass, No Brudzinski, No Kernig's, No carotid bruit Respiratory Exam: airway intact, crackles/rales (Rales RLL), No respiratory distress Cardiovascular Exam: regular rate/rhythm, normal heart sounds, normal peripheral pulses, capillary refill <2 sec, No murmur Gastrointestinal/Abdomen Exam: soft, normal bowel sounds, No tenderness Extremity Exam: normal inspection, normal range of motion Neurologic Exam: alert, oriented x 3, cooperative, radiology technician II-XII nml as tested, normal mood/affect, nml cerebellar function, nml station & gait, sensation nml, No motor deficits, No sensory deficit Skin Exam: normal color, warm, dry, No rash Lymphatic Exam: No adenopathy SpO2 Interpretation: normal SpO2: 95 O2 Delivery: Room Air - Course Nursing assessment & vital signs reviewed: Yes - Radiology Exams Chest X-ray Interpretation: Interpreted by me (RLL infiltrate) Ordered Tests: Active Orders 24 hr Category Date Time Status CHEST 1 VIEW (PORTABLE) Stat Exams 01/14/23 20:33 Taken CBC W DIFF Stat Lab 01/14/23 20:55 Completed CMP Stat Lab 01/14/23 20:55 Completed Medication Summary Discontinued Medications Generic Name Dose Route Start Last Admin Trade Name Freq PRN Reason Stop Dose Admin Levofloxacin 750 mg 01/14/23 22:35 Levofloxacin 250 Mg Tab PO 01/14/23 22:36 STAT ONE Lab/Rad Data: Laboratory Result Diagrams 01/14/23 20:55 01/14/23 20:55 Laboratory Results 01/14/23 01/14/23 01/14/23 Range/Units 20:55 20:55 20:55 WBC 12.4 H (4.0-10.5) x10^3/uL RBC 3.65 L (4.1-5.4) x10^6/uL Hgb 11.0 L (12.0-16.0) g/dL Hct 35.3 (35-47) % MCV 96.7 (78-100) fL MCH 30.1 (26-32) pg MCHC 31.2 L (32-36) g/dL RDW 13.2 (11.5-14.0) % Plt Count 389 (150-450) x10^3/uL MPV 9.4 (7.5-11.0) fL Gran % 62.0 (36.0-66.0) % Immature Gran % (Auto) 0.9 H (0.00-0.4) % Nucleat RBC Rel Count 0.0 (0.00-0.1) % Eos # (Auto) 0.21 (0-0.5) x10^3/uL Immature Gran # (Auto) 0.11 H (0.00-0.03) x10^3u/L Absolute Lymphs (auto) 3.22 (1.0-4.6) x10^3/uL Absolute Monos (auto) 1.03 (0.0-1.3) x10^3/uL Absolute Nucleated RBC 0.00 (0.00-0.01) x10^3u/L Lymphocytes % 26.0 (24.0-44.0) % Monocytes % 8.3 (0.0-12.0) % Eosinophils % 1.7 (0.00-5.0) % Basophils % 1.1 (0.0-0.4) % Absolute Granulocytes 7.67 H (1.4-6.9) x10^3/uL Basophils # 0.13 (0-0.4) x10^3/uL Sodium 141 (137-145) mmol/L Potassium 4.2 (3.5-5.1) mmol/L Chloride 104 (98-107) mmol/L Carbon Dioxide 25 (22-30) mmol/L Anion Gap 16.0 H (5-15) MEQ/L BUN 21 H (7-17) mg/dL Creatinine 0.95 (0.52-1.04) mg/dL Estimated GFR > 60.0 ML/MIN Glucose 121 H (74-106) mg/dL Calcium 9.1 (8.4-10.2) mg/dL Total Bilirubin 0.50 (0.2-1.3) mg/dL AST 28 (14-36) U/L ALT 53 H (0-35) U/L Alkaline Phosphatase 114 (38-126) U/L Serum Total Protein 8.0 (6.3-8.2) g/dL Albumin 4.1 (3.5-5.0) g/dL Influenza Type A Ag NEGATIVE (NEGATIVE) Influenza Type B Ag NEGATIVE (NEGATIVE) RSV (PCR) NEGATIVE (NEGATIVE) SARS-CoV-2 (PCR) NEGATIVE (NEGATIVE) - Progress Progress Note: 01/14/23 22:45 Nursing note and vital signs reviewed No food or housing insecurities noted Additional history per SO All labs reviewed and shared w pt/SO CXR w RLL infiltrate Pt w goods sats and non-labored respirations during entire stay, so ok to treat as an outpt 750mg po Levaquin Pt advised to follow up with her PCP next week Counseled pt/family regarding: lab results, diagnosis, need for follow-up, rad results Medical Desision Making - Independent Historian Additional History obtained from: Spouse - Diagnostic Testing Radiological Interpretation: Interpreted by me - Risk of complications The pt has a mod risk of morbidity or mortality based on: Need for prescription drug management - Departure Departure Disposition: Home Clinical Impression: Pneumonia Condition: Stable Critical Care Time: No Referrals: YESENIA CONNOR, [employer] [Primary Care Provider] - Follow up/PCP as directed Instructions: Pneumonia, Adult (DC) Additional Instructions: Rest Fluids Levaquin once a day for 5 days Follow up with your family MD next week Return to ER for worsening cough, increasing shortness of breath, or persistent temperature greater than 100.5 Prescriptions: Levofloxacin [Levofloxacin 500 MG Tablet] 750 mg PO DAILY #5 tablet
[2023-01-14 20:55] LABS: Absolute Neutrophil Ct (ANC) 7.67 x10^3/uL (1.4-6.9); BASOPHIL % 1.1 % (0.0-0.4); Basophil (Absolute #) 0.13 x10^3/uL (0-0.4); Eosinophil % 1.7 % (0.00-5.0); Eosinophil (Absolute #) 0.21 x10^3/uL (0-0.5); Hematocrit 35.3 % (35-47); IMMATURE GRAN # 0.11 x10^3u/L (0.00-0.03); IMMATURE GRAN % 0.9 % (0.00-0.4); Lymphocyte (Absolute #) 3.22 x10^3/uL (1.0-4.6); Mean Cell Volume 96.7 fL (78-100); Mean Corpuscular Hemoglobin 30.1 pg (26-32); Mean Corpuscular Hgb Concent. 31.2 g/dL (32-36); Mean Platelet Volume 9.4 fL (7.5-11.0); Monocyte (Absolute #) 1.03 x10^3/uL (0.0-1.3); Monocytes % 8.3 % (0.0-12.0); Platelet Count 389 x10^3/uL (150-450); Red Blood Count 3.65 x10^6/uL (4.1-5.4); Red Cell Distribution Width 13.2 % (11.5-14.0); White Blood Count 12.4 x10^3/uL (4.0-10.5)
[2023-01-14 21:09] LABS: ALBUMIN 4.1 g/dL (3.5-5.0); ALKALINE PHOSPHATASE 114 U/L (38-126); BLOOD UREA NITROGEN 21 mg/dL (7-17); CHLORIDE 104 mmol/L (98-107); Calcium 9.1 mg/dL (8.4-10.2); Carbon Dioxide 25 mmol/L (22-30); Creatinine 1 0.95 mg/dL (0.52-1.04); EST GLOMERULAR FILTRATION RATE > 60.0 ML/MIN; Glucose 121 mg/dL (74-106); Potassium 4.2 mmol/L (3.5-5.1); SGOT/AST 28 U/L (14-36); SGPT/ALT 53 U/L (0-35); SODIUM 141 mmol/L (137-145)
[2023-01-14 21:34] LABS: INFLUENZA A NEGATIVE (NEGATIVE); INFLUENZA B NEGATIVE (NEGATIVE); RESPIRATORY SYNCTIAL VIRUS NEGATIVE (NEGATIVE); SARS-CoV-2 Xpert Express NEGATIVE (NEGATIVE)
[2023-01-14] MEDS ORDERED: Levofloxacin 250MG Tablet PO ONE (22:35)
[2023-01-14] MEDS ORDERED: Levofloxacin 250MG Tablet ONE (22:42)
--- NOTE | 2023-01-14 22:58 | XRAY ---
Indication: Cough. Comparison: September 29, 2021 Portable chest demonstrates new right mid to lower lung infiltrate/atelectasis. Remaining heart and left lung normal. Bony thorax intact again with osteopenia and degenerative changes.
[2023-01-14 23:03] VITALS: BP 157/72; PULSE 57; O2SAT 97
== END 2023-01-14 23:10 | disposition home or self-care (01) ==
LOC: ED 20:04
DX: J18.9 Pneumonia, unspecified organism (principal); R05.9 Cough, unspecified; R09.81 Nasal congestion; R19.7 Diarrhea, unspecified; R11.0 Nausea; I10 Essential (primary) hypertension; Z79.899 Other long term (current) drug therapy; Z28.310 Unvaccinated for COVID-19
CPT/HCPCS: 0241U; 36415; 71045; 80053; 85025; 99283; A9270-GY

== ENCOUNTER 2023-09-14 15:02 | Emergency (ER) | payer MEDICARE ==
--- NOTE | 2023-09-14 15:05 | ERPHSYRPT ---
- History of Present Illness Time Seen by Provider: 09/14/23 15:05 Source: patient, family Exam Limitations: no limitations Physician History: This is a 68-year-old white female patient who presents with 1 week history of multiple complaints including headache, chest pain anteriorly, palpitations, blood pressure issues and nausea. Patient's primary care provider is nurse practitioner Yesenia Connor. Patient arrives by private vehicle. Patient denies any head injury. Patient states that approximately 1 week ago she became very upset and noticed that her systolic blood pressure had increased into the 170s. Since that time, her systolic blood pressure has not significantly decreased despite taking her medications as prescribed. Her headache is global and persistent. She has no visual changes. Patient also feels very weak and tired. Patient describes the chest pain as substernal, central achiness without radiation. Patient has a history of hypertension, hyperlipidemia, anxiety disorder, panic attacks and gastroesophageal reflux disease. Patient recently completed a round of amoxicillin to treat a pneumonia she was diagnosed with. Quality: aching Head Pain Location: global Severity of Pain-Max: moderate Severity of Pain-Current: mild Recent Head Trauma: no recent headache/trauma, occasional headaches Modifying Factors: Improves With: noise Associated Symptoms: dizziness, light-headedness, nausea/vomiting (Nausea but no vomiting), No loss of consciousness Previous symptoms: no recent treatment Allergies/Adverse Reactions: shrimp Allergy (Intermediate, Verified 09/14/23 15:21) Swelling of Face sulfamethoxazole [From Bactrim] Allergy (Verified 09/14/23 15:21) trimethoprim [From Bactrim] Allergy (Verified 09/14/23 15:21) Home Medications: Escitalopram Oxalate [Lexapro] 20 mg PO DAILY 02/13/20 [History] Metoprolol Succinate 50 mg [Toprol Xl 50 MG] 50 mg PO BID 02/13/20 [History] Famotidine 20 mg [Pepcid 20 MG] 20 mg PO BID 09/03/20 [History] Spironolactone 25 mg PO DAILY 09/03/20 [History] Colestipol HCl [Colestid] 2 gm PO BID 09/29/21 [History] Cholecalciferol (Vitamin D3) [Decara] 2 tab PO DAILY 08/18/23 [History] Cyanocobalamin (Vitamin B-12) [Vitamin B-12] 1 tab PO DAILY 08/18/23 [History] Sucralfate 1 gm [Carafate 1 GM] 1 tab PO DAILY 08/18/23 [History] Hx Tetanus, Diphtheria Vaccination/Date Given: No Hx Influenza Vaccination/Date Given: No Hx Pneumococcal Vaccination/Date Given: No Travel Risk - International Travel Have you traveled outside of the country in past 3 weeks: No - Coronavirus Screening Are you exhibiting any of the following symptoms?: No Close contact with a COVID-19 positive Pt in past 14-21 Days: No - Vaccine Status Have you recieved a Covid-19 vaccination: No - Review of Systems Constitutional: Weakness Eyes: No Symptoms Ears, Nose, & Throat: No Symptoms Respiratory: No Symptoms Cardiac: Chest Pain, Palpitations Abdominal/Gastrointestinal: Nausea, No Abdominal Pain, No Vomiting, No Diarrhea, No Constipation Genitourinary Symptoms: No Symptoms Musculoskeletal: No Symptoms Skin: No Symptoms Neurological: Dizziness, Headache Psychological: No Symptoms Endocrine: No Symptoms Hematologic/Lymphatic: No Symptoms Immunological/Allergic: No Symptoms All Other Systems: Reviewed and Negative - Past Medical History Pertinent Past Medical History: Yes Neurological History: No Pertinent History ENT History: No Pertinent History Cardiac History: Hypertension, Other Respiratory History: Sleep Apnea, Other Endocrine Medical History: No Pertinent History Musculoskeletal History: No Pertinent History GI Medical History: GERD History: No Pertinent History Psycho-Social History: Anxiety, Other Female Reproductive Disorders: No Pertinent History Other Medical History: hx sob, 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 cardiomyopathy. celiac disease - Past Surgical History Past Surgical History: Yes Neuro Surgical History: No Pertinent History Cardiac: No Pertinent History Respiratory: No Pertinent History Gastrointestinal: Appendectomy, Cholecystectomy Genitourinary: No Pertinent History Musculoskeletal: No Pertinent History Female Surgical History: Other Other Surgical History: skin cancer removed from scalp done under local. rt ovary and mass removed, lipomas removed from arms. - Social History Smoking Status: Former smoker Exposure to second hand smoke: Yes Drug Use: none Patient Lives Alone: No Significant Family History: no pertinent family hx - Nursing Vital Signs Nursing Vital Signs: Initial Vital Signs Pulse Rate 69 09/14/23 15:12 Respiratory Rate 16 09/14/23 15:12 Blood Pressure 160/75 09/14/23 15:12 O2 Sat by Pulse Oximetry 97 09/14/23 15:12 Pain Scale Pain Intensity 7 - Physical Exam General Appearance: no apparent distress, alert, anxiety Eye Exam: PERRL/EOMI, eyes nml inspection Ears, Nose, Throat Exam: normal ENT inspection, moist mucous membranes Neck Exam: normal inspection, non-tender, supple, full range of motion Respiratory Exam: normal breath sounds, chest tenderness, lungs clear, airway intact, No respiratory distress Cardiovascular Exam: regular rate/rhythm, normal heart sounds, normal peripheral pulses Gastrointestinal/Abdominal Exam: soft, normal bowel sounds, No tenderness Back Exam: normal inspection, normal range of motion, No CVA tenderness, No vertebral tenderness Extremity Exam: normal inspection, normal range of motion, pelvis stable Mental Status Exam: alert, oriented x 3, cooperative airline transport pilot Exam: normal hearing, normal speech, PERRL, tongue midline Coordination/Gait Exam: normal finger to nose, normal gait, normal cerebellar function Motor/Sensory Exam: no motor deficit, no sensory deficit Skin Exam: normal color, warm, dry Lymphatic Exam: adenopathy SpO2 Interpretation: normal O2 Delivery: Room Air - Course Nursing assessment & vital signs reviewed: Yes EKG Interpreted by Me: RATE (56), Sinus Rhythm, NORMAL AXIS, NORMAL INTERVALS, NORMAL QRS, NORMAL ST-T, Other (No acute ischemic changes on today's twelve-lead EKG) Ordered Tests: Active Orders 24 hr Category Date Time Status Priest STAT Care 09/14/23 15:28 Active EKG-ER Only STAT Care 09/14/23 15:27 Active IV Insertion STAT Care 09/14/23 15:27 Active Pulse Oximetry (ED) STAT Care 09/14/23 15:27 Active HEAD WITHOUT CONTRAST [CT] Stat Exams 09/14/23 15:28 Completed CBC W DIFF Stat Lab 09/14/23 15:37 Completed CMP Stat Lab 09/14/23 15:37 Completed CULTURE,URINE Stat Lab 09/14/23 15:58 Received PROTIME WITH INR Stat Lab 09/14/23 15:37 Completed TROPONIN Q4H Lab 09/14/23 15:37 Completed TROPONIN Q4H Lab 09/14/23 19:30 Ordered TROPONIN Q4H Lab 09/14/23 23:30 Ordered UA W/RFX UR CULTURE Stat Lab 09/14/23 15:58 Completed Medication Summary Discontinued Medications Generic Name Dose Route Start Last Admin Trade Name Freq PRN Reason Stop Dose Admin Aspirin 324 mg 09/14/23 15:27 09/14/23 15:47 Aspirin 81 Mg Tab.Chew PO 09/14/23 15:28 324 mg STAT ONE Administration Aspirin Confirm 09/14/23 15:37 Aspirin 81 Mg Tab.Chew Administered 09/14/23 15:38 Dose 324 mg .ROUTE .STK-MED ONE Ondansetron HCl 4 mg 09/14/23 15:27 09/14/23 15:47 Ondansetron Hcl 4 Mg/2 Ml Vial IV 09/14/23 15:28 4 mg STAT ONE Administration Ondansetron HCl Confirm 09/14/23 15:37 Ondansetron Hcl 4 Mg/2 Ml Vial Administered 09/14/23 15:38 Dose 4 mg .ROUTE .STK-MED ONE Lab/Rad Data: Laboratory Result Diagrams 09/14/23 15:37 09/14/23 15:37 Laboratory Results 09/14/23 09/14/23 09/14/23 Range/Units 15:58 15:37 15:37 WBC (4.0-10.5) x10^3/uL RBC (4.1-5.4) x10^6/uL Hgb (12.0-16.0) g/dL Hct (35-47) % MCV (78-100) fL MCH (26-32) pg MCHC (32-36) g/dL RDW (11.5-14.0) % Plt Count (150-450) x10^3/uL MPV (7.5-11.0) fL Gran % (36.0-66.0) % Immature Gran % (Auto) (0.00-0.4) % Nucleat RBC Rel Count (0.00-0.1) % Eos # (Auto) (0-0.5) x10^3/uL Immature Gran # (Auto) (0.00-0.03) x10^3u/L Absolute Lymphs (auto) (1.0-4.6) x10^3/uL Absolute Monos (auto) (0.0-1.3) x10^3/uL Absolute Nucleated RBC (0.00-0.01) x10^3u/L Lymphocytes % (24.0-44.0) % Monocytes % (0.0-12.0) % Eosinophils % (0.00-5.0) % Basophils % (0.0-0.4) % Absolute Granulocytes (1.4-6.9) x10^3/uL Basophils # (0-0.4) x10^3/uL PT 10.1 (9.4-12.5) SECONDS INR 0.92 (0.8-3.0) Sodium (137-145) mmol/L Potassium (3.5-5.1) mmol/L Chloride (98-107) mmol/L Carbon Dioxide (22-30) mmol/L Anion Gap (5-15) MEQ/L BUN (7-17) mg/dL Creatinine (0.52-1.04) mg/dL Estimated GFR ML/MIN Glucose (74-106) mg/dL Calcium (8.4-10.2) mg/dL Total Bilirubin (0.2-1.3) mg/dL AST (14-36) U/L ALT (0-35) U/L Alkaline Phosphatase (38-126) U/L Troponin I < 0.012 (0.000-0.034) ng/mL Serum Total Protein (6.3-8.2) g/dL Albumin (3.5-5.0) g/dL Urine Color Yellow (Yellow) Urine Appearance Clear (Clear) Urine pH 5.5 (4.6-8.0) Ur Specific Wilson 1.020 (1.005-1.030) Urine Protein Negative (Negative) Urine Glucose (UA) Negative (Negative) mg/dL Urine Ketones Negative (Negative) Urine Blood Negative (Negative) Urine Nitrite Negative (Negative) Urine Bilirubin Negative (Negative) Urine Urobilinogen 0.2 (0.2) mg/dL Ur Leukocyte Esterase Moderate A (Negative) U Hyaline Cast (Auto) NONE SEEN (0-2) /LPF Urine Microscopic RBC 0-2 (0-5) /HPF Urine Microscopic WBC 11-20 A (0-5) /HPF Ur Epithelial Cells Few (None Seen) /HPF Urine Bacteria None Seen (None Seen) /HPF Urine Culture Reflexed YES (NO) 09/14/23 09/14/23 Range/Units 15:37 15:37 WBC 11.1 H (4.0-10.5) x10^3/uL RBC 4.10 (4.1-5.4) x10^6/uL Hgb 12.3 (12.0-16.0) g/dL Hct 39.3 (35-47) % MCV 95.9 (78-100) fL MCH 30.0 (26-32) pg MCHC 31.3 L (32-36) g/dL RDW 13.7 (11.5-14.0) % Plt Count 291 (150-450) x10^3/uL MPV 9.6 (7.5-11.0) fL Gran % 47.7 (36.0-66.0) % Immature Gran % (Auto) 0.4 (0.00-0.4) % Nucleat RBC Rel Count 0.0 (0.00-0.1) % Eos # (Auto) 0.47 (0-0.5) x10^3/uL Immature Gran # (Auto) 0.04 H (0.00-0.03) x10^3u/L Absolute Lymphs (auto) 4.32 (1.0-4.6) x10^3/uL Absolute Monos (auto) 0.78 (0.0-1.3) x10^3/uL Absolute Nucleated RBC 0.00 (0.00-0.01) x10^3u/L Lymphocytes % 39.0 (24.0-44.0) % Monocytes % 7.0 (0.0-12.0) % Eosinophils % 4.2 (0.00-5.0) % Basophils % 1.7 (0.0-0.4) % Absolute Granulocytes 5.29 (1.4-6.9) x10^3/uL Basophils # 0.19 (0-0.4) x10^3/uL PT (9.4-12.5) SECONDS INR (0.8-3.0) Sodium 137 (137-145) mmol/L Potassium 4.5 (3.5-5.1) mmol/L Chloride 104 (98-107) mmol/L Carbon Dioxide 23 (22-30) mmol/L Anion Gap 14.6 (5-15) MEQ/L BUN 20 H (7-17) mg/dL Creatinine 0.99 (0.52-1.04) mg/dL Estimated GFR 61.7 ML/MIN Glucose 102 (74-106) mg/dL Calcium 9.4 (8.4-10.2) mg/dL Total Bilirubin 0.80 (0.2-1.3) mg/dL AST 29 (14-36) U/L ALT 22 (0-35) U/L Alkaline Phosphatase 86 (38-126) U/L Troponin I (0.000-0.034) ng/mL Serum Total Protein 8.1 (6.3-8.2) g/dL Albumin 4.6 (3.5-5.0) g/dL Urine Color (Yellow) Urine Appearance (Clear) Urine pH (4.6-8.0) Ur Specific Wilson (1.005-1.030) Urine Protein (Negative) Urine Glucose (UA) (Negative) mg/dL Urine Ketones (Negative) Urine Blood (Negative) Urine Nitrite (Negative) Urine Bilirubin (Negative) Urine Urobilinogen (0.2) mg/dL Ur Leukocyte Esterase (Negative) U Hyaline Cast (Auto) (0-2) /LPF Urine Microscopic RBC (0-5) /HPF Urine Microscopic WBC (0-5) /HPF Ur Epithelial Cells (None Seen) /HPF Urine Bacteria (None Seen) /HPF Urine Culture Reflexed (NO) - Progress Progress: improved, re-examined, unchanged Air Movement: good Progress Note: 09/14/23 15:43 This patient's medical issue is 1 of moderate complexity. The level of complexity in the workup performed is based on review of the patient's past medical history, review of the patient's medication list, review patient drug allergy list, history of present illness and physical findings on examination. The workup in this patient includes placement of an intravenous line, twelve- lead EKG, troponin level, CT scan of the head, urinalysis, CBC, CMP 09/14/23 16:54 I interpreted the patient's laboratory data results. Patient has a urinary tract infection. It is at least moderate infection. CT scan of the head without contrast was interpreted by the radiologist and I reviewed the impression. Atrophy is within normal limits. There is a remote lacunar infarct left basal ganglia. There is no acute intracranial hemorrhage. There is no mass effect. There is no acute intracranial abnormality. Clinically, the patient has no evidence of CVA. She is completely neurologically intact and has been so throughout her stay in the emergency department. Blood Culture(s) Obtained: Yes Antibiotics given: Yes Counseled pt/family regarding: lab results, diagnosis, need for follow-up, rad results Medical Desision Making - Independent Historian Additional History obtained from: Family - Diagnostic Testing Diagnostic test were ordered, analyzed, and reviewed by me: Yes Radiological Interpretation: Reviewed by me, Teleradiologist Report - Risk of complications The pt has a mod risk of morbidity or mortality based on: Need for prescription drug management - Departure Departure Disposition: Home Clinical Impression: Urinary tract infection, Dizziness, Weakness Condition: Stable Critical Care Time: No Referrals: YESENIA CONNOR [employer] [Primary Care Provider] - Follow up/PCP as directed Additional Instructions: Drink plenty of fluids. Take your medications as prescribed. Call your primary care provider tomorrow, 09/15/2023, to make arrangements for further evaluation and management in the next 3 to 5 days. Prescriptions: Ciprofloxacin [Cipro 500 MG] 500 mg PO BID #14 tablet
[2023-09-14] MEDS ORDERED: BABY ASPIRIN 81 MG CHEW PO ONE (15:27)
[2023-09-14] MEDS ORDERED: Zofran 4 MG/2 ML VIAL IV ONE (15:27)
[2023-09-14] MEDS ORDERED: BABY ASPIRIN 81 MG CHEW ONE (15:37)
[2023-09-14] MEDS ORDERED: Zofran 4 MG/2 ML VIAL ONE (15:37)
[2023-09-14 15:39] LABS: Absolute Neutrophil Ct (ANC) 5.29 x10^3/uL (1.4-6.9); BASOPHIL % 1.7 % (0.0-0.4); Basophil (Absolute #) 0.19 x10^3/uL (0-0.4); Eosinophil % 4.2 % (0.00-5.0); Eosinophil (Absolute #) 0.47 x10^3/uL (0-0.5); Hematocrit 39.3 % (35-47); Hemoglobin 12.3 g/dL (12.0-16.0); IMMATURE GRAN # 0.04 x10^3u/L (0.00-0.03); IMMATURE GRAN % 0.4 % (0.00-0.4); Lymphocyte (Absolute #) 4.32 x10^3/uL (1.0-4.6); Mean Cell Volume 95.9 fL (78-100); Mean Corpuscular Hgb Concent. 31.3 g/dL (32-36); Mean Platelet Volume 9.6 fL (7.5-11.0); Monocyte (Absolute #) 0.78 x10^3/uL (0.0-1.3); Neutrophil % 47.7 % (36.0-66.0); Platelet Count 291 x10^3/uL (150-450); Red Cell Distribution Width 13.7 % (11.5-14.0); White Blood Count 11.1 x10^3/uL (4.0-10.5)
[2023-09-14 15:52] LABS: INR 0.92 (0.8-3.0); PROTIME 10.1 SECONDS (9.4-12.5)
[2023-09-14 15:53] LABS: ALBUMIN 4.6 g/dL (3.5-5.0); ANION GAP 14.6 MEQ/L (5-15); BILIRUBIN,TOTAL 0.8 mg/dL (0.2-1.3); Calcium 9.4 mg/dL (8.4-10.2); Creatinine 1 0.99 mg/dL (0.52-1.04); EST GLOMERULAR FILTRATION RATE 61.7 ML/MIN; Potassium 4.5 mmol/L (3.5-5.1); Total Protein 8.1 g/dL (6.3-8.2)
[2023-09-14 16:07] LABS: ADD URINE CULTURE? YES (NO); Appearance Clear (Clear); Bacteria None Seen /HPF (None Seen); Bilirubin Negative (Negative); Blood Negative (Negative); Epithelial Cells Few /HPF (None Seen); Glucose, Urine Negative (Negative); Hyaline Casts NONE SEEN /LPF (0-2); Ketones Negative (Negative); Leukocyte Esterase Moderate (Negative); Nitrite Negative (Negative); Ph 5.5 (4.6-8.0); Protein,Urine Dip Negative (Negative); RBC 0-2 /HPF (0-5); Urobilinogen 0.2 mg/dL (0.2)
--- NOTE | 2023-09-14 16:32 | XRAY ---
Indication: Headache 1 week. Multiple contiguous axial images obtained through the head without contrast. Comparison: None Age-appropriate global atrophy. Remote lacunar infarct left basal ganglia. No acute intracranial hemorrhage, abnormal extra-axial fluid collection, or mass effect. Fourth ventricle is midline without hydrocephalus. Marrero-white matter differentiation preserved. Bony calvarium intact. Visualized paranasal sinuses and mastoid air cells are clear. Impression: Atrophy within normal limits. Remote lacunar infarct left basal ganglia. No acute intracranial abnormalities.
[2023-09-14] MEDS ORDERED: ROCEPHIN 1 Gm-D5w 50 ml Bag** 1 G/50 ML IVPB IV STA (16:48)
[2023-09-14] MEDS ORDERED: ROCEPHIN 1 Gm-D5w 50 ml Bag** 1 G/50 ML IVPB IV ONE (17:05)
[2023-09-14 17:06] VITALS: BP 163/70; PULSE 59; RESP 18; O2SAT 98
== END 2023-09-14 17:42 | disposition home or self-care (01) ==
LOC: ED 15:02
DX: N39.0 Urinary tract infection, site not specified (principal); R42 Dizziness and giddiness; R53.1 Weakness; R51.9 Headache, unspecified; R07.9 Chest pain, unspecified; R00.2 Palpitations; R11.0 Nausea; I10 Essential (primary) hypertension; E78.5 Hyperlipidemia, unspecified; Z79.899 Other long term (current) drug therapy; Z28.310 Unvaccinated for COVID-19
CPT/HCPCS: 36000; 36415; 70450; 80053; 81001; 84484; 85025; 85610; 87086; 93005; 93041; 94760; 96365; 96374; 99284; J0696; J2405; A9270-GY

== ENCOUNTER 2023-10-06 10:53 | Emergency (ER) | payer MEDICARE ==
[2023-10-06 11:09] VITALS: RESP 18; TEMP 97.9; O2SAT 98
--- NOTE | 2023-10-06 11:18 | ERPHSYRPT ---
- History of Present Illness Time Seen by Provider: 10/06/23 11:13 Source: patient Exam Limitations: no limitations Patient Subjective Stated Complaint: Knee pain Triage Nursing Assessment: Patient ambulated back to ED and transferred self to bed. Patient A+O X3. Patient's skin pink, warm and dry. Patient complains of left knee pain and swelling for a few days. Patient denies injury or trauma. Left outer knee noted to be swollen. Patient complains of pain 7/10 worse when ambulating. Physician History: Patient is a 68-year-old white female who presents with a complaint of swelling of the lateral aspect of the left knee. This has been present for several days she complains of pain with ambulating or bearing weight.Her initial thought was that this represented an exacerbation of her arthritis.She denies any known injury. Occurred: days ago (Several days ago) Quality: throbbing Severity of Pain-Max: moderate (7 of 10) Lower Extremities Pain: knee: left Modifying Factors: Improves With: movement Allergies/Adverse Reactions: shrimp Allergy (Intermediate, Verified 10/06/23 10:59) Swelling of Face sulfamethoxazole [From Bactrim] Allergy (Verified 10/06/23 10:59) trimethoprim [From Bactrim] Allergy (Verified 10/06/23 10:59) Home Medications: Escitalopram Oxalate [Lexapro] 20 mg PO DAILY 02/13/20 [History] Metoprolol Succinate 50 mg [Toprol Xl 50 MG] 50 mg PO BID 02/13/20 [History] Famotidine 20 mg [Pepcid 20 MG] 20 mg PO BID 09/03/20 [History] Spironolactone 25 mg PO DAILY 09/03/20 [History] Colestipol HCl [Colestid] 2 gm PO BID 09/29/21 [History] Cholecalciferol (Vitamin D3) [Decara] 2 tab PO DAILY 08/18/23 [History] Cyanocobalamin (Vitamin B-12) [Vitamin B-12] 1 tab PO DAILY 08/18/23 [History] Sucralfate 1 gm [Carafate 1 GM] 1 tab PO DAILY 08/18/23 [History] Hx Tetanus, Diphtheria Vaccination/Date Given: No Hx Influenza Vaccination/Date Given: No Hx Pneumococcal Vaccination/Date Given: No Immunizations Up to Date: Yes Travel Risk - International Travel Have you traveled outside of the country in past 3 weeks: No - Coronavirus Screening Are you exhibiting any of the following symptoms?: No Close contact with a COVID-19 positive Pt in past 14-21 Days: No - Vaccine Status Have you recieved a Covid-19 vaccination: No - Review of Systems Constitutional: No Fever, No Chills Eyes: No Symptoms Ears, Nose, & Throat: No Symptoms Respiratory: No Cough, No Dyspnea Cardiac: No Chest Pain, No Edema, No Syncope Abdominal/Gastrointestinal: No Abdominal Pain, No Nausea, No Vomiting, No Diarrhea Genitourinary Symptoms: No Dysuria Musculoskeletal: Joint Pain, Joint Swelling, No Back Pain, No Neck Pain Skin: No Rash Neurological: No Dizziness, No Focal Weakness, No Sensory Changes Psychological: No Symptoms Endocrine: No Symptoms All Other Systems: Reviewed and Negative - Past Medical History Pertinent Past Medical History: Yes Neurological History: No Pertinent History ENT History: No Pertinent History Cardiac History: Hypertension, Other Respiratory History: Sleep Apnea, Other Endocrine Medical History: No Pertinent History Musculoskeletal History: No Pertinent History GI Medical History: GERD History: No Pertinent History Psycho-Social History: Anxiety, Other Female Reproductive Disorders: No Pertinent History Other Medical History: hx sob, 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 cardiomyopathy. celiac disease - Past Surgical History Past Surgical History: Yes Neuro Surgical History: No Pertinent History Cardiac: No Pertinent History Respiratory: No Pertinent History Gastrointestinal: Appendectomy, Cholecystectomy Genitourinary: No Pertinent History Musculoskeletal: No Pertinent History Female Surgical History: Other Other Surgical History: skin cancer removed from scalp done under local. rt ovary and mass removed, lipomas removed from arms. - Social History Smoking Status: Former smoker Exposure to second hand smoke: Yes Drug Use: none Patient Lives Alone: No Significant Family History: no pertinent family hx - Nursing Vital Signs Nursing Vital Signs: Initial Vital Signs Temperature 97.9 F 10/06/23 11:00 Pulse Rate 58 L 10/06/23 11:00 Respiratory Rate 18 10/06/23 11:00 Blood Pressure 170/74 10/06/23 11:00 O2 Sat by Pulse Oximetry 98 10/06/23 11:00 Pain Scale Pain Intensity 7 - Physical Exam General Appearance: mild distress Eyes, Ears, Nose, Throat Exam: normal ENT inspection Neck Exam: normal inspection, non-tender, supple, full range of motion Cardiovascular/Respiratory Exam: no respiratory distress, No JVD Hips Exam: bilateral: non-tender, normal inspection, normal range of motion Legs Exam: bilateral leg: non-tender, normal inspection, normal range of motion Knees Exam: left knee: joint effusion, pain, soft tissue tenderness, swelling Ankle Exam: bilateral ankle: non-tender, normal inspection, normal range of motion Foot Exam: bilateral foot: non-tender, normal inspection, normal range of motion Neuro/Tendon Exam: normal sensation, normal motor functions, normal tendon functions Mental Status Exam: alert, oriented x 3, cooperative Skin Exam: normal color, warm, dry SpO2 Interpretation: normal SpO2: 98 O2 Delivery: Room Air - Course Nursing assessment & vital signs reviewed: Yes - Radiology Exams Left Knee X-ray Interpretation: Reviewed by me, Other (Some effusion) Ordered Tests: Active Orders 24 hr Category Date Time Status Immobilizer STAT Care 10/06/23 12:06 Completed KNEE (3 VIEWS) Stat Exams 10/06/23 11:06 Completed CBC W DIFF Stat Lab 10/06/23 11:50 Completed SED RATE [Erythrocyte Sedimentation Rate] Stat Lab 10/06/23 11:50 Completed Lab/Rad Data: Laboratory Result Diagrams 10/06/23 11:50 Laboratory Results 10/06/23 Range/Units 11:50 WBC 8.6 (4.0-10.5) x10^3/uL RBC 3.81 L (4.1-5.4) x10^6/uL Hgb 11.4 L (12.0-16.0) g/dL Hct 36.2 (35-47) % MCV 95.0 (78-100) fL MCH 29.9 (26-32) pg MCHC 31.5 L (32-36) g/dL RDW 13.4 (11.5-14.0) % Plt Count 308 (150-450) x10^3/uL MPV 9.5 (7.5-11.0) fL Gran % 53.5 (36.0-66.0) % Immature Gran % (Auto) 0.2 (0.00-0.4) % Nucleat RBC Rel Count 0.0 (0.00-0.1) % Eos # (Auto) 0.37 (0-0.5) x10^3/uL Immature Gran # (Auto) 0.02 (0.00-0.03) x10^3u/L Absolute Lymphs (auto) 2.86 (1.0-4.6) x10^3/uL Absolute Monos (auto) 0.62 (0.0-1.3) x10^3/uL Absolute Nucleated RBC 0.00 (0.00-0.01) x10^3u/L Lymphocytes % 33.4 (24.0-44.0) % Monocytes % 7.2 (0.0-12.0) % Eosinophils % 4.3 (0.00-5.0) % Basophils % 1.4 (0.0-0.4) % Absolute Granulocytes 4.57 (1.4-6.9) x10^3/uL Basophils # 0.12 (0-0.4) x10^3/uL ESR 31 H (0-20) mm/hr - Progress Progress: unchanged Progress Note: 10/06/23 11:58 Patient was instructed to follow-up with the Ortho clinic on Tuesday morning at 8 AM if she has not improved Medical Desision Making - Diagnostic Testing Diagnostic test were ordered, analyzed, and reviewed by me: Yes Radiological Interpretation: Reviewed by me - Risk of complications Low Risk: Low risk of morbidity from additional dx testing or treatment - Departure Departure Disposition: Home Clinical Impression: Effusion, left knee Condition: Stable Critical Care Time: No Referrals: YESEN[facility] [employer] [Primary Care Provider] - Follow up/PCP as directed Instructions: Swollen Joints (DC) Prescriptions: Hydrocodone/Acetaminophen [Hydrocodone-Acetamin 5-325 mg] 1 tab PO Q6HPRN PRN 3 Days #12 tablet MDD 4 PRN Reason: Pain Prednisone 10 mg [Deltasone 10 mg] 10 mg PO TID #12 tablet
--- NOTE | 2023-10-06 11:30 | XRAY ---
Indication: Pain. Effusion. Comparison: None 3 portable views left knee demonstrates osteopenia, mild medial joint space narrowing/spurring, tiny nonspecific effusion, and lateral subcutaneous venous varicosities. No other bony, articular, or soft tissue abnormalities.
[2023-10-06 11:55] LABS: Absolute Neutrophil Ct (ANC) 4.57 x10^3/uL (1.4-6.9); BASOPHIL % 1.4 % (0.0-0.4); Basophil (Absolute #) 0.12 x10^3/uL (0-0.4); Eosinophil % 4.3 % (0.00-5.0); Eosinophil (Absolute #) 0.37 x10^3/uL (0-0.5); Hematocrit 36.2 % (35-47); Hemoglobin 11.4 g/dL (12.0-16.0); IMMATURE GRAN # 0.02 x10^3u/L (0.00-0.03); IMMATURE GRAN % 0.2 % (0.00-0.4); Lymphocyte (Absolute #) 2.86 x10^3/uL (1.0-4.6); Lymphocytes % 33.4 % (24.0-44.0); Mean Corpuscular Hemoglobin 29.9 pg (26-32); Mean Corpuscular Hgb Concent. 31.5 g/dL (32-36); Mean Platelet Volume 9.5 fL (7.5-11.0); Monocyte (Absolute #) 0.62 x10^3/uL (0.0-1.3); Monocytes % 7.2 % (0.0-12.0); Neutrophil % 53.5 % (36.0-66.0); Platelet Count 308 x10^3/uL (150-450); Red Blood Count 3.81 x10^6/uL (4.1-5.4); Red Cell Distribution Width 13.4 % (11.5-14.0); White Blood Count 8.6 x10^3/uL (4.0-10.5)
[2023-10-06 12:03] LABS: Erythrocyte Sedimentation Rate 31 mm/hr (0-20)
[2023-10-06 12:25] VITALS: BP 152/85; PULSE 64
== END 2023-10-06 12:25 | disposition home or self-care (01) ==
LOC: ED 10:53
DX: M25.462 Effusion, left knee (principal); M25.562 Pain in left knee; I10 Essential (primary) hypertension; Z79.891 Long term (current) use of opiate analgesic; Z79.52 Long term (current) use of systemic steroids; Z79.899 Other long term (current) drug therapy; Z28.310 Unvaccinated for COVID-19
CPT/HCPCS: 36415; 73562; 85025; 85652; 86140; 99283; L1830

== ENCOUNTER 2023-10-27 08:55 | Day surgery (SDC) | payer MEDICARE, SELFPAY ==
--- NOTE | 2023-09-15 14:42 | HP ---
DATE OF SURGERY: 09/22/2023 HISTORY OF PRESENT ILLNESS: The patient is a 68-year-old female presented with history of celiac disease and gastroesophageal reflux disease. It looks like she is having some diarrhea off and on and some crampy belly pain in the right mid abdomen. She has some spasm. She has some nausea. She has been on some Pepcid. She does not like proton pump inhibitors as they make her dizzy. She sees no blood in her stool. No constipation. She has seen GI for the celiac and told her it was minimal. She has been on colestipol for diarrhea from the GI people. She stated that they told her it was irritable bowel syndrome with diarrhea. It looks like the patient also had colon polyps on past examination. PAST MEDICAL HISTORY: Gastroesophageal reflux disease. Depression. Hypertension. Celiac disease. PAST SURGICAL HISTORY: Cholecystectomy. Oophorectomy. Appendectomy. ALLERGIES: SULFAMETHOXAZOLE. TRIMETHOPRIM. SHRIMP. MEDICATIONS: Spironolactone, sucralfate, metoprolol, Lomotil, Pepcid, Lexapro, B12, D3. FAMILY HISTORY: Cirrhosis. SOCIAL HISTORY: Former smoker. No alcohol. REVIEW OF SYSTEMS: CONSTITUTIONAL: Denies fever or chills. CHEST: Denies shortness of breath. CVS: Denies chest pain. ABDOMEN: Reports right-sided abdominal pain. PHYSICAL EXAMINATION: GENERAL: No acute distress. CHEST: Nonlabored. No shortness of breath. CVS: Regular rate and rhythm. ABDOMEN: Soft. IMPRESSION: History of celiac disease, gastroesophageal reflux disease, diarrhea, history of polyps, abdominal pain. PLAN: EGD and colonoscopy with Dr. Joel Valle. As dictated by Abby Capone NP.
--- NOTE | 2023-10-26 10:54 | HP ---
DATE OF SURGERY: 10/27/2023 HISTORY OF PRESENT ILLNESS: The patient is a 68-year-old female who presented for endoscopy. The patient said she has had diarrhea off and on up to ten times a day. She has a lot of cramping with the diarrhea and right mid abdominal pain. She also has some nausea and complains of acid reflux despite being on Pepcid. She denies blood in her stool, constipation. She has lost some weight and gained some weight. She has seen GI in the past for celiac disorder that is minimal. PAST MEDICAL HISTORY: Gastroesophageal reflux disease, hypertension, anxiety, depression, cardiomyopathy. PAST SURGICAL HISTORY: Cholecystectomy. Oophorectomy. Appendectomy. ALLERGIES: BACTRIM. MEDICATIONS: Vitamin D, Lexapro, Pepcid, Lomotil, metoprolol, sucralfate, Spironolactone. FAMILY HISTORY: Cirrhosis. SOCIAL HISTORY: Former smoker. REVIEW OF SYSTEMS: CONSTITUTIONAL: Denies fever or chills. CHEST: Denies shortness of breath. CVS: Denies chest pain. ABDOMEN: Reports abdominal pain. PHYSICAL EXAMINATION: GENERAL: No acute distress. CHEST: Nonlabored. No shortness of breath. CVS: Regular rate and rhythm. ABDOMEN: Soft. IMPRESSION: History of gastroesophageal reflux disease, celiac disease, diarrhea, nausea, history of colon polyps PLAN: EGD and colonoscopy with Dr. Joel Valle. As dictated by Abby Capone NP.
[2023-10-27] MEDS ORDERED: Lactated Ringers 1,000 ML IV ONE (09:22)
[2023-10-27] MEDS: Lactated Ringers 1,000 ML IV SCH (09:25)
[2023-10-27] MEDS ORDERED: DIPRIVAN 200 MG/20 ML IV ONE ×2 (11:24→11:43)
[2023-10-27] MEDS ORDERED: Versed 2 MG/2 ML Injection ONE (11:25)
[2023-10-27 12:26] VITALS: TEMP 97.5
[2023-10-27 12:41] VITALS: BP 130/53; PULSE 54; RESP 18; O2SAT 97
--- NOTE | 2023-10-27 14:24 | OP ---
SURGERY DATE/TIME: 10/27/2023 1130 PREOPERATIVE DIAGNOSIS: Nausea, vomiting, diarrhea and screening. POSTOPERATIVE DIAGNOSES: 1) Grade 3 over 4 gastroesophageal reflux disease with stricture. 2) Three polyps in the colon: A 2 cm mid sigmoid, 1.5 cm splenic and 1.5 cm right colon. PROCEDURES: 1) EGD with cold biopsy antrum. 2) Colonoscopy complete to cecum with biopsy, forceps polypectomy x3. SURGEON: Joel Valle M.D. ANESTHESIA: General. COMPLICATIONS: None. CONDITION: Stable. PREP SCORE: Almost excellent. WITHDRAWAL TIME: About six minutes. INDICATION: As above. DESCRIPTION OF PROCEDURE: The patient is taken to endoscopy. Pharyngoesophageal junction normal. Esophagus normal down to gastroesophageal junction. There is a stricture about size 44. There is grade 3 gastroesophageal reflux disease. Fundus, body, antrum normal. Pylorus normal. Duodenal bulb normal. Second portion normal. Scope looped upon itself normal. No hiatal hernia. Scope withdrawn. Anal digital examination satisfactory. In the sigmoid a 2 cm polyp taken with hot biopsy forceps. Splenic flexure 1.5 cm and right colon 1.5 cm. Base of the cecum satisfactory. On circumferential withdrawal, no additional lesions. The patient had significant polyps today. We will put her down for one year follow up on her C-scope.
== END 2023-10-27 12:55 | disposition home or self-care (01) ==
LOC: SDC 08:55
PROVIDERS: ATTEND Surgery
DX: Z12.11 Encounter for screening for malignant neoplasm of colon (principal); R11.2 Nausea with vomiting, unspecified; R19.7 Diarrhea, unspecified; K21.9 Gastro-esophageal reflux disease without esophagitis; K22.2 Esophageal obstruction; D12.5 Benign neoplasm of sigmoid colon; D12.3 Benign neoplasm of transverse colon
CPT/HCPCS: J2250; J2704

== ENCOUNTER 2024-02-03 06:05 | Day surgery (SDC) | payer MEDICARE, SELFPAY ==
[2024-02-03] MEDS: CEFAZOLIN 2 GM-D5W BAG** 2 GM/50 ML ML IV SCH (06:16)
[2024-02-03] MEDS: Lactated Ringers 1,000 ML IV SCH (06:16)
[2024-02-03] MEDS ORDERED: Reglan 10 MG/2 ML ONE (07:07)
[2024-02-03] MEDS ORDERED: Pepcid 20 MG VIAL IV ONE (07:07)
[2024-02-03] MEDS ORDERED: Decadron 4 MG INJ ONE ×2 (07:20→07:51)
[2024-02-03] MEDS ORDERED: Zofran 4 MG/2 ML VIAL ONE ×2 (07:20→09:10)
[2024-02-03] MEDS ORDERED: DIPRIVAN 200 MG/20 ML IV ONE (07:20)
[2024-02-03] MEDS ORDERED: Quelicin Fliptop 200 MG/10 ML ONE (07:20)
[2024-02-03] MEDS ORDERED: SUBLIMAZE 100 MCG/2 ML ONE (07:20)
[2024-02-03] MEDS ORDERED: Xylocaine-Mpf 2% 5 Ml Vial ONE (07:20)
[2024-02-03] MEDS ORDERED: Versed 2 MG/2 ML Injection ONE (07:28)
[2024-02-03] MEDS ORDERED: MARCAINE 0.5%-EPI 1:200,000 VL IJ ONE (07:32)
[2024-02-03] MEDS ORDERED: ROBINUL ONE (07:57)
[2024-02-03] MEDS ORDERED: TORAdol 30 mg Injection ONE (08:00)
[2024-02-03] MEDS ORDERED: Lactated Ringers 1,000 ML IV ONE (08:04)
[2024-02-03] MEDS ORDERED: Compazine 10 MG/2 ML ONE (09:28)
[2024-02-03 10:02] VITALS: RESP 16; O2SAT 95
[2024-02-03 10:22] VITALS: BP 125/78; PULSE 68; TEMP 97.4
--- NOTE | 2024-02-04 09:29 | OP ---
SURGERY DATE/TIME: 02/03/2024 [id number] - 1986 PREOPERATIVE DIAGNOSES: 1) Torn left medial and lateral menisci. 2) Osteoarthritis, left knee. POSTOPERATIVE DIAGNOSES: 1) Torn left medial and lateral menisci. 2) Osteoarthritis, left knee. PROCEDURES: 1) Arthroscopy of the left knee with partial medial and lateral meniscectomy. 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 SURGEON: Edwin Carson DO ANESTHESIA: General. DESCRIPTION OF PROCEDURE AND FINDINGS: The patient was identified and informed consent was obtained. The patient was taken to the operative suite and placed in the supine position on the operating table where general anesthetic was administered. Once an appropriate level of anesthesia had been obtained, a tourniquet was placed high on the left thigh. The left lower extremity was then placed in the knee anderson and prepped and draped in the usual sterile fashion. A standard time-out was taken. Leg was then exsanguinated and the tourniquet was elevated to 350 mmHg. A standard superomedial portal was created with an 11 blade and a trocar and a cannula were then placed in the joint. The joint was then distended with the arthroscopic pump. An inferolateral portal was also created with an 11 blade and the arthroscope was then placed in through a cannula. An 18-gauge spinal needle identified the level for the inferomedial portal which was also created with an 11 blade. At this point, the knee was then inspected in a systemic fashion beginning in the suprapatellar pouch. No loose bodies or synovial hypertrophy were noted. Gutters were inspected again. No loose bodies or synovial hypertrophy. The undersurface of the patella and trochlear groove were noted to have none to very minimal chondromalacia changes. Scope was placed in the medial compartment where a complex tear involving the anterior, middle and posterior horn of the medial meniscus was encountered. Also noted was significant chondromalacia of the medial femoral condyle of grade III in nature. Chondroplasty was performed of the femoral condyle after the meniscal tear had been resected with the handheld biting instruments and shaved to a smooth transition with the shaver. Intercondylar notch was region was inspected and the anterior cruciate ligament was inspected with some slight laxity but no evidence of a full tear of the ACL. Scope was then placed into the lateral compartment with the lateral meniscus and probed throughout its entirety. Noted to have degenerative tear along the middle and posterior horns. Resected with the handheld biting instruments and shaved to a smooth transition with the shaver. The patient was noted to have a large area of raw, hard eburnated bone consistent with osteoarthritis in the lateral femoral condyle. The surrounding loose tissue was lightly debrided. At this point, the knee was re-inspected and copiously irrigated. No further pathology was identified. The instrumentation was removed. The portal sites were closed with interrupted 4-0 nylon suture. The knee was then infiltrated with 30 mL of 0.25% Marcaine with epinephrine, Adaptics, 4 x 4's and a standard postoperative arthroscopy dressing applied. The patient was then transferred to the cart and taken to the recovery room in satisfactory condition having tolerated the procedure well.
== END 2024-02-03 10:45 | disposition home or self-care (01) ==
LOC: SDC 06:05
PROVIDERS: ATTEND Orthopaedic Surgery
DX: S83.282A Other tear of lateral meniscus, current injury, left knee, initial encounter (principal); S83.242A Other tear of medial meniscus, current injury, left knee, initial encounter; M17.12 Unilateral primary osteoarthritis, left knee
CPT/HCPCS: J0330; J0690; J1100; J1885; J2250; J2405; J2704; J3010

== ENCOUNTER 2025-08-04 19:55 | Emergency (ER) | payer MEDICARE, SELFPAY ==
[2025-08-04 20:08] VITALS: TEMP 97.6; O2SAT 96
--- NOTE | 2025-08-04 20:23 | ERPHSYRPT ---
- History of Present Illness Time Seen by Provider: 08/04/25 20:00 Patient Subjective Stated Complaint: c/o fall Triage Nursing Assessment: patient brought to ED with c/o fall last Tuesday. patient rates pain 10/10 in right lower back and states it radiates to the left lower back and has progressively gotten worse over the past few days. hypertensive, skin w/n/d, no abrasion present, no bruising present, doesn't appear to be in any distress at this time. Physician History: Patient is a 70-year-old female who presents to the emergency department for evaluation of right posterior pelvic pain after she had a slip and fall 4 days ago. She states that she initially got up and was ambulatory immediately after the fall, however, has continued to have spasms and pain in her right posterior pelvis. She is not having any numbness, weakness, saddle anesthesia, incon tinence of bowel or bladder. She is not anticoagulated. She denies any midline lumbar spine tenderness, however, states that her pain does radiate from the right posterior pelvis to the anterior inguinal canal. She denies any previous surgeries or fractures to the lumbar spine. She has still been ambulatory, however, feels like she is having spasm type pain with weightbearing. She continues to have no numbness or weakness. She has no other injuries or complaints. Allergies/Adverse Reactions: shrimp Allergy (Intermediate, Verified 08/04/25 19:57) Swelling of Face Sulfa (Sulfonamide Antibiotics) Allergy (Verified 08/04/25 19:57) sulfamethoxazole [From Bactrim] Allergy (Verified 08/04/25 19:57) trimethoprim [From Bactrim] Allergy (Verified 08/04/25 19:57) doxycycline Adverse Reaction (Verified 08/04/25 19:57) Nausea statins Allergy (Unknown, Uncoded 08/04/25 19:57) pt reports she was unable to walk after taking these Home Medications: Escitalopram Oxalate [Lexapro] 20 mg PO DAILY 02/13/20 [History] Metoprolol Succinate 50 mg [Toprol Xl 50 MG] 50 mg PO BID 02/13/20 [History] Spironolactone 25 mg PO DAILY 09/03/20 [History] Cholecalciferol (Vitamin D3) [Decara] 50,000 units PO WEEKLY 08/18/23 [History] Cyanocobalamin (Vitamin B-12) [Cyanocobalamin Injection] 1,000 mcg IM .MONTHLY 10/27/23 [History] Evolocumab [Repatha Syringe] 140 mg IM UD 10/27/23 [History] Aspirin [Aspirin EC] 81 mg PO DAILY 07/17/25 [History] Diphenoxylate HCl/Atropine [Diphenoxylate-Atrop 2.5-0.025] 2 tab PO QID 07/17/25 [History] Fluticasone Propionate [24 Hour Allergy] 9.9 ml NS DAILY 07/17/25 [History] Vonoprazan Fumarate [Voquezna] 10 mg PO DAILY 07/17/25 [History] Hx Tetanus, Diphtheria Vaccination/Date Given: No Hx Influenza Vaccination/Date Given: No Hx Pneumococcal Vaccination/Date Given: No Travel Risk - International Travel Have you traveled outside of the country in past 3 weeks: No - Emerging Infectious Disease Are you exhibiting symptoms associated with any current EIDs: No - Past Medical History Pertinent Past Medical History: Yes Neurological History: TIA ENT History: No Pertinent History Cardiac History: Hypertension, Other Respiratory History: Sleep Apnea, Other Endocrine Medical History: No Pertinent History Musculoskeletal History: No Pertinent History GI Medical History: GERD, Irritable Bowel History: No Pertinent History Psycho-Social History: Anxiety, Other Female Reproductive Disorders: No Pertinent History Other Medical History: hx sob, 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 cardiomyopathy. celiac disease-MILD? - Past Surgical History Past Surgical History: Yes Neuro Surgical History: No Pertinent History Cardiac: No Pertinent History Respiratory: No Pertinent History Gastrointestinal: Appendectomy, Cholecystectomy Genitourinary: No Pertinent History Musculoskeletal: No Pertinent History Female Surgical History: Other Other Surgical History: skin cancer removed from scalp done under local. rt ovary and mass removed, lipomas removed from arms. Significant Family History: no pertinent family hx - Social History Smoking Status: Never smoker Exposure to second hand smoke: No Drug Use: none - Social Determinants of Health Will the patient participate in the screening: Yes Do you worry about a steady place to live?: No Do you have any problems with any of the following?: No known problems In the past 12 months,have you had to go without utilities?: No Transportation Issues: No Has anyone in your support network made you feel unsafe?: No Have you or anyone in your house had to go w/o enough food: No - Nursing Vital Signs Nursing Vital Signs: Initial Vital Signs Temperature 97.6 F 08/04/25 19:57 Pulse Rate 64 08/04/25 19:57 Respiratory Rate 17 08/04/25 19:57 Blood Pressure 182/81 08/04/25 19:57 O2 Sat by Pulse Oximetry 96 08/04/25 19:57 Pain Scale Pain Intensity 10 - Physical Exam SpO2: 96 Comments: GENERAL: Well-nourished, well-developed, appears stated age. Patient is non- toxic in appearance. No acute distress. HEENT: Head is atraumatic, normocephalic. Pupils equal, round, and reactive to light. Extraocular movements intact. No conjunctival injection. No external masses or lesions. Pharynx is clear, airway is patent. NECK: Supple, no meningeal signs. Trachea midline. HEART: Regular rate and rhythm. No murmurs. Symmetric radial pulses. No peripheral edema. LUNGS: Clear to auscultation bilaterally. No rales, rhonchi, wheezes, retractions. ABDOMEN: Soft, nontender, nondistended. No guarding, rigidity, or peritoneal signs. No palpable masses or organomegaly. Negative Lincoln's. Negative McBurney's. EXTREMITIES: Normal muscle tone. No joint swelling or tenderness. No cyanosis or clubbing. SKIN: Warm, dry. No rashes, petechia, or purpura. Capillary refill <2 seconds. NEURO: CN II-XII grossly intact. Strength is 5/5 and equal in the bilateral upper and lower extremities. Sensation grossly intact. No focal neurologic deficits. Speech is clear. PSYCHIATRIC: Patient is awake and alert. Appropriate behavior and judgment. Ordered Tests: Active Orders 24 hr Category Date Time Status LUMBAR SPINE W/O [CT] Stat Exams 08/04/25 20:21 Completed PELVIS WITHOUT CONTRAST [CT] Stat Exams 08/04/25 20:22 Completed Medication Summary Discontinued Medications Generic Name Dose Route Start Last Admin Trade Name Freq PRN Reason Stop Dose Admin Metoprolol Succinate 50 mg 08/04/25 21:34 Metoprolol Succinate 50 Mg Tablet.Sa PO 08/04/25 21:35 DAILY ONE Morphine Sulfate 2 mg 08/04/25 20:21 08/04/25 20:26 Morphine Sulfate 2 Mg/Ml Inj IM 08/04/25 20:22 2 mg STAT ONE Administration Morphine Sulfate Confirm 08/04/25 20:24 Morphine Sulfate 2 Mg/Ml Inj Administered 08/04/25 20:25 Dose 2 mg .ROUTE .Fliptop-MED ONE - Progress Progress Note: 08/04/25 21:05 Patient was seen and evaluated by myself. History was obtained from the patient as well as her partner who is at the bedside. Differential diagnosis includes but is not limited to: Fracture, dislocation, contusion, abrasion, muscle spasm, other. The following was ordered to further evaluate: CT lumbar spine without contrast, CT pelvis without contrast Medications given: Morphine 2 mg IM 08/04/25 21:40 Imaging was independently reviewed and interpreted by myself and is pending radiology overread. Imaging was significant for no traumatic injury in the pelvis or lumbar spine with chronic changes noted throughout the lumbar spine, most significant at L3-L4, L4-L5, and L5-S1 with noncompressive bulging disks noted which are likely resulting in spasm. The patient was updated on the results and all questions were answered. Differential diagnosis and treatment plan were discussed. Given the patient's reassuring imaging, she will be discharged with continued supportive care with anti-inflammatories and muscle relaxers. CT LUMBAR SPINE W/O: IMPRESSION: 1. No fracture seen in the lumbar spine 2. Changes of lumbar spondylosis Electronically Signed by: Levon Felix MD. (08/04/2025 21:29:29 EST) A prescription was given for ibuprofen 600 mg every 6 hours, Robaxin 1000 mg 4 times daily and dosing regimen and side effect profile was discussed. The patient was instructed to follow up with her PCP in 2-3 days and strict return precautions were given to return to the ER immediately for any new or concerning worsening symptoms. Verbal and written discharge instructions were provided and the patient demonstrated understanding. The patient was then discharged in hemodynamically stable condition. - Departure Departure Disposition: Home Clinical Impression: Spasm Low back pain Qualifiers: Chronicity: acute Back pain laterality: right Sciatica presence: without sciatica Qualified Code(s): M54.50 - Low back pain, unspecified Condition: Stable Critical Care Time: No Referrals: YESENIA CONNOR NP [Primary Care Provider, UNKNOWN] - Follow up/PCP as directed Instructions: Muscle strain, Back Stretches on Floor, Low back pain in adults Additional Instructions: Use your prescribed medication as needed for spasm and pain. You should take them diligently for the next few days as this will relieve your symptoms. Follow-up with your PCP in 2-3 days for reevaluation to ensure you are improving as expected. Prescriptions: Ibuprofen 600 mg PO QID 3 Days #20 tablet Methocarbamol [Robaxin] 1,000 mg PO QID 3 Days #32 tablet
[2025-08-04] MEDS ORDERED: MORPHINE SULFATE 2 MG INJ ONE (20:24)
[2025-08-04] MEDS: MORPHINE SULFATE 2 MG INJ IM ONE (20:26)
--- NOTE | 2025-08-04 21:24 | XRAY ---
CLINICAL HISTORY: fall, R posterior pelvic pain COMPARISON: - TECHNIQUE: Contiguous axial CT images of Pelvis were obtained without intravenous contrast. Coronal and sagittal reconstructions were likewise performed and indicated to increase the sensitivity for detecting clinically relevant pathology. CT scan was performed according to ALARA (as low as reasonably achievable) FINDINGS: No acute fracture or dislocation. No destructive osseous lesions. The visualised muscles and tendons appear grossly unremarkable. No cortical destruction to suggest osteomyelitis. No abscess formation. No significant joint effusion. There are no soft tissue masses. Normal subcutaneous adipose space. IMPRESSION: 1. No abnormality seen in the present study Electronically Signed by: Levon Fleix MD. (08/04/2025 21:22:42 EST)
--- NOTE | 2025-08-04 21:30 | XRAY ---
CLINICAL HISTORY: fall, R sided pain COMPARISON: - TECHNIQUE: Multiple contiguous axial images were obtained through the lumbar spine without IV contrast. Sagittal and coronal reformatted images were obtained from the axial data. CT scan was performed according to ALARA (as low as reasonably achievable. FINDINGS: Loss of normal lumbar lordosis. Anterior osteophytes are seen at multiple levels L4-5 and L5-S1 disc space is reduced Mild anterolisthesis of L3 over L4 by 2 mm- degenerative in etiology Focal sclerosis is seen in the right half of the L4 vertebral body Lumbar vertebral bodies are maintained in height and alignment. No vertebral destructive changes are seen. T11-T12: Evaluated on sagittal images only. No disc bulge, canal stenosis or neural foraminal narrowing. Subarticular recesses are patented. T12-L1: Evaluated on sagittal images only. No disc bulge, canal stenosis or neural foraminal narrowing. Subarticular recesses are patented. L1-L2: No disc bulge, canal stenosis or neural foraminal narrowing. Subarticular recesses are patented. L2-L3: No disc bulge, canal stenosis or neural foraminal narrowing. Subarticular recesses are patented. L3-L4: Diffuse disc bulge effacing thecal sac without nerve root compression. Facetal arthropathy is seen at this level. L4-L5: Diffuse disc bulge with postero-central component, bilateral foraminal narrowing effacing thecal sac and abutting bilateral traversing L5 nerve roots. Facetal arthropathy is seen at this level. L5-S1:Diffuse disc bulge effacing thecal sac without nerve root compression. Facetal arthropathy is seen at this level. Paravertebral soft tissues are unremarkable. Sclerotic focus seen in left pedicle of L5 level- likely osteoma. IMPRESSION: 1. No fracture seen in the lumbar spine 2. Changes of lumbar spondylosis Electronically Signed by: Levon Felix MD. (08/04/2025 21:29:29 EST)
[2025-08-04] MEDS: Toprol Xl 50 MG PO ONE (21:50)
[2025-08-04 21:55] VITALS: BP 163/92; PULSE 68; RESP 18
== END 2025-08-04 22:06 | disposition home or self-care (01) ==
LOC: ED 19:55
DX: R25.2 Cramp and spasm (principal); M54.50 Low back pain, unspecified; R10.21 Pelvic and perineal pain right side; I10 Essential (primary) hypertension; Z79.899 Other long term (current) drug therapy